=== PATIENT | male | born 1960 | race Caucasian/White ===

== ENCOUNTER → 2021-02-19 13:25 | Outpatient (BNVA) | payer BC, MEDICAID, SELFPAY | PROVIDERS: PCP Physician Assistant; Visit Provider Internal Medicine Gastroenterology ==

== ENCOUNTER 2022-01-10 08:32 | Outpatient (REF) | payer BC, MEDICAID, SELFPAY ==
[2022-01-10 15:12] LABS: CDiff Gene PCR NEGATIVE (Negative)
[2022-01-14 20:52] LABS: Fecal Fat Qualitative Abnormal (Normal)
[2022-01-15 22:46] LABS: Lactoferrin, Fecal, Quant. <30.0 mcg/mL
[2022-01-16 22:27] LABS: Pancreatic Elastase-1 80 mcg/g
== END 2022-01-10 08:33 | disposition home or self-care (01) ==
LOC: CF 08:32
PROVIDERS: PCP Physician Assistant; Visit Provider Internal Medicine Gastroenterology
DX: R19.7 Diarrhea, unspecified (principal)
CPT/HCPCS: 36415; 82656; 82705; 83631; 87329; 87493

== ENCOUNTER → 2022-02-07 08:57 | Outpatient (BNVA) | payer BC, MEDICAID, SELFPAY | PROVIDERS: PCP Physician Assistant; Referring Provider Physician Assistant; Visit Provider Internal Medicine Gastroenterology | DX: K22.70 Barrett's esophagus without dysplasia (principal); R19.7 Diarrhea, unspecified; K86.89 Other specified diseases of pancreas | CPT/HCPCS: 99212 ==

== ENCOUNTER 2022-02-15 10:23 | Outpatient (REF) | payer BC, MEDICAID, SELFPAY ==
[2022-02-15 12:05] LABS: Anion Gap 11 (12-20); Blood Urea Nitrogen 16 mg/dL (9-16); Calcium 9.4 mg/dL (8.4-10.2); Carbon Dioxide 31 mmol/L (22-29); Chloride 102 mmol/L (96-108); Estimated Glomerular Filt Rate > 60; Glucose Random 177 mg/dL (60-115); Potassium 4.4 mmol/L (3.3-5.1); Sodium 140 mmol/L (135-145)
== END 2022-02-15 10:24 | disposition home or self-care (01) ==
LOC: HO.LAB 10:23
PROVIDERS: PCP Physician Assistant; Visit Provider Internal Medicine Gastroenterology
DX: N18.30 Chronic kidney disease, stage 3 unspecified (principal)
CPT/HCPCS: 36415; 80048

== ENCOUNTER 2022-02-21 16:14 | Outpatient (REF) | payer BC, MEDICAID, SELFPAY ==
--- NOTE | ~2022-02-21 | MR_ITS ---
EXAMINATION: MR ABDOMEN WITHOUT AND WITH CONTRAST CLINICAL INFORMATION: Diarrhea COMPARISON: Abdominal ultrasound 08/21/2020 . TECHNIQUE: MR abdomen was performed without and with use of 8 mL intravenous Gadavist gadolinium contrast. Postcontrast images are performed in multiphase dynamic sequences. Imaging was performed in 3 planes. FINDINGS: LUNG BASES: The visualized lung bases are unremarkable. LIVER, GALLBLADDER, AND BILIARY TREE: The liver is normal in size, smooth in contour, and normal in signal. No focal hepatic lesion or biliary ductal dilatation is present. The gallbladder is unremarkable with no evidence of gallbladder wall thickening, or obvious pericholecystic inflammatory changes. PANCREAS: The pancreatic parenchyma is homogenous. No ductal dilatation. No focal pancreatic lesion. SPLEEN: Normal. ADRENAL GLANDS: Normal. KIDNEYS AND URETERS: The kidneys are normal in size, shape, and enhance symmetrically. No hydronephrosis. No perinephric stranding. GASTROINTESTINAL TRACT: No bowel obstruction. No ascites or fluid collection. ABDOMINAL WALL: No significant hernia is appreciated. LYMPH NODES: No lymphadenopathy. VASCULAR: Unremarkable. OSSEOUS STRUCTURES: Marrow signal normal. MR/MR abdomen wo/w con IMPRESSION: No suspicious findings in the abdomen. Normal appearance of the pancreas. No lymphadenopathy. The visualized bowel shows no suspicious finding.
== END 2022-02-21 16:15 | disposition home or self-care (01) ==
LOC: HO.MRI 16:14
PROVIDERS: Visit Provider Internal Medicine Gastroenterology
DX: R19.7 Diarrhea, unspecified (principal); K86.89 Other specified diseases of pancreas
CPT/HCPCS: 74183; A9585

== ENCOUNTER 2022-04-15 07:13 | Outpatient (REF) | payer BC, MEDICAID, SELFPAY ==
[2022-04-15 07:26] LABS: MANUAL DIFF FLAG NO
[2022-04-15 08:03] LABS: Basophils Percent Auto 0.3 % (0-2); Eosinophils Percent Auto 0.5 % (0-4); Hematocrit 45.3 % (42.0-52.0); Hemoglobin 14.6 g/dl (14.0-18.0); Imm Gran Abs Auto 0.04 X10*3/uL (0.00-0.03); Imm Gran Pct Auto 0.5 % (0.0-0.4); Lymphocytes Absolute Auto 2.1 X10*3/uL (1.2-4.9); Lymphocytes Percent Auto 26.8 % (20-40); Mean Corpuscular HGB Conc 32.2 g/dl (31.0-36.0); Mean Corpuscular Hemoglobin 29.5 pg (27.0-33.0); Mean Corpuscular Volume 91.5 fL (80.0-98.0); Mean Platelet Volume 10.5 fL (9.4-12.4); Monocytes Absolute Auto 1.1 X10*3/uL (0.1-1.2); Monocytes Percent Auto 13.6 % (2-11); Neutrophils Absolute Auto 4.5 x10*3/uL (2.0-8.3); Neutrophils Percent Auto 58.3 % (45-73); Platelet Count 194 X10*3/uL (160-400); Red Blood Count 4.95 X10*6/uL (4.60-5.80); Red Cell Distribution Width 12.3 % (11.0-16.0); White Blood Count 7.8 X10*3/uL (4.8-10.8)
[2022-04-15 08:25] LABS: Alanine Aminotransferase 21 U/L (0-40); Albumin Level 3.8 g/dL (3.5-5.0); Alkaline Phosphatase 69 U/L (39-117); Anion Gap 12 (12-20); Aspartate Amino Transferase 42 U/L (5-37); Bilirubin Total 0.7 mg/dL (0.0-1.0); Blood Urea Nitrogen 14 mg/dL (9-16); C Reactive Protein 0.34 mg/dL (< or = 0.50); Calcium 9.2 mg/dL (8.4-10.2); Carbon Dioxide 29 mmol/L (22-29); Chloride 99 mmol/L (96-108); Estimated Glomerular Filt Rate > 60; Glucose Random 179 mg/dL (60-115); Potassium 4.2 mmol/L (3.3-5.1); Sodium 136 mmol/L (135-145); Total Protein 6.9 g/dL (6.5-8.0)
== END 2022-04-15 07:14 | disposition home or self-care (01) ==
LOC: HO.LAB 07:13
PROVIDERS: PCP Physician Assistant; Visit Provider Physician Assistant
DX: R19.5 Other fecal abnormalities (principal)
CPT/HCPCS: 36415; 80053; 85025; 86140

== ENCOUNTER → 2022-04-25 08:13 | Outpatient (BNVA) | payer BC, MEDICAID, SELFPAY | PROVIDERS: PCP Physician Assistant; Visit Provider Internal Medicine Gastroenterology | DX: Z13.89 Encounter for screening for other disorder (principal) ==

== ENCOUNTER 2022-07-23 06:40 | Day surgery (SDC) | payer BC, MEDICAID, SELFPAY ==
[2022-07-17 15:14] VITALS: BMI 25.9
--- NOTE | 2022-07-22 11:48 | HO.ANESPROP2 ---
Documented by User: Edilma Boo NP 07/22/22 11:50 HPI - Anesthesia Eval Consult details Narrative: 62yo M for Upper Endoscopy *Multiple Med Allergies* PMFSH Active Problems Active Problems: All Active Problems (Updated 07/17/22 @ 15:11 by Sushma Morgan, RN) Diarrhea (Acute) Pancreatic insufficiency (Acute) Past Medical History Medical History (Updated 07/17/22 @ 15:11 by Sushma Morgan RN) Arthritis Barretts esophagus COVID-19 vaccine administered Depression Diabetes GERD (gastroesophageal reflux disease) History of COVID-19 Peptic ulcer Peripheral neuropathy Surgical History Surgical History (Updated 07/17/22 @ 14:54 by Sushma Morgan RN) H/O colonoscopy History of esophagogastroduodenoscopy (EGD) Hx of cardiac catheterization Hx of hernia repair Social History Social History Household Members: None Are you a primary childcare worker to a significant other at home: No Do you presently have visiting nurse or other home services: No Alcohol intake: never Patient Tobacco Use Status: Never used Tobacco Use of substances other than those prescribed or required for medical reasons: No Have you been hit, kicked, punched, or otherwise hurt by someone within the past year? If so, by whom?: No Are you DNR?: Yes Advance Directives: No (states has HCP & DNR forms) Advance Directives Information Provided: Yes (advised to bring copies DOS) Advance Directives on File: No Recently lost weight without trying: No Eating poorly because of decreased appetite: No Nutrition Risks: No Nutritional Risk Meds Allergies Allergy/AdvReac Type Severity Reaction Status Date / Time hydrocodone [From VICODIN] Allergy Intermediate HALLUCINATE Verified 07/17/22 15:08 S naproxen [NAPROXEN] Allergy Intermediate HALLUCINATE Verified 07/17/22 15:08 S oxycodone [From PERCOCET] Allergy Intermediate HALLUCINATE Verified 07/17/22 15:08 S alprazolam [ALPRAZOLAM] Allergy Unknown PER H&P Verified 04/25/22 08:17 clonazepam [CLONAZEPAM] Allergy Unknown PER H&P Verified 04/25/22 08:17 metformin [METFORMIN] Allergy Unknown PER H&P Verified 04/25/22 08:17 metoprolol [METOPROLOL] Allergy Unknown PER H&P Verified 04/25/22 08:17 omeprazole Allergy Unknown unknown Verified 04/25/22 08:17 sertraline [SERTRALINE] Allergy Unknown PER H&P Verified 04/25/22 08:17 trazodone [TRAZODONE] Allergy Unknown PER H&P Verified 04/25/22 08:17 zolpidem [From AMBIEN] Allergy Unknown PER H&P Verified 04/25/22 08:17 Vicodin Allergy Unknown unknown Uncoded 04/25/22 08:17 Home Medications Medication Instructions Recorded Confirmed Last Taken Type blood-glucose meter #1 ea 02/19/21 Unknown History diazepam 5 mg tablet 5 mg PO BEDTIME 02/19/21 07/17/22 Unknown History insulin lispro 100 unit/mL 5 unit subcut TIDAC 02/19/21 07/17/22 Unknown History subcutaneous pen insulin syr/ndl U100 half louis 0.3 #10 ea 02/19/21 Unknown History mL 31 gauge x 5/16 lancets 28 gauge #100 ea 02/19/21 Unknown History blood sugar diagnostic (Accu-Chek #10 ea 04/25/22 Unknown History Guide test strips) insulin glargine 100 unit/mL 18 unit subcut BEDTIME 04/25/22 07/17/22 Unknown History subcutaneous solution (Lantus U-100 Insulin) insulin syringe-needle U-100 0.3 #10 ea 04/25/22 Unknown History mL 31 gauge x 15/64 (BD Veo Insulin Syringe Ultra-Fine) sildenafil 100 mg tablet 100 mg PO DAILY PRN Erectile 04/25/22 07/17/22 Unknown History Dysfunction acetaminophen 500 mg tablet 1,000 mg PO TID 07/17/22 07/17/22 Unknown History Exam Exam Date and Time: July 22, 2022 1148 Height,Weight and Vital Signs: Height 5 ft 9 in Weight 79.832 kg Pertinent Lab Results Pertinent Lab Results: Laboratory Tests 04/15/22 04/15/22 07:24 07:24 WBC 7.8 Hgb 14.6 Hct 45.3 Plt Count 194 Sodium 136 Potassium 4.2 Chloride 99 Carbon Dioxide 29 BUN 14 Creatinine 0.88 Assessment and Plan Assessment Anesthesia Assessment: Chart Reviewed Documented by User: Mindy Garcia MD 07/23/22 08:25 PMFSH Past Medical History Medical History (Updated 07/17/22 @ 15:11 by Sushma Morgan, RN) Arthritis Barretts esophagus COVID-19 vaccine administered Depression Diabetes GERD (gastroesophageal reflux disease) History of COVID-19 Peptic ulcer Peripheral neuropathy Family History Family history of problems with anesthesia: No Surgical History Surgical History (Updated 07/17/22 @ 14:54 by Sushma Morgan, OBEY) H/O colonoscopy History of esophagogastroduodenoscopy (EGD) Hx of cardiac catheterization Hx of hernia repair History of Problems with Anesthesia: No Social History Social History Household Members: None Are you a primary childcare worker to a significant other at home: No Do you presently have visiting nurse or other home services: No Alcohol intake: never Patient Tobacco Use Status: Never used Tobacco Use of substances other than those prescribed or required for medical reasons: No Have you been hit, kicked, punched, or otherwise hurt by someone within the past year? If so, by whom?: No Are you DNR?: Yes Advance Directives: No (states has HCP & DNR forms) Advance Directives Information Provided: Yes (advised to bring copies DOS) Advance Directives on File: No Recently lost weight without trying: No Eating poorly because of decreased appetite: No Nutrition Risks: No Nutritional Risk Meds Allergies Allergy/AdvReac Type Severity Reaction Status Date / Time hydrocodone [From VICODIN] Allergy Intermediate HALLUCINATE Verified 07/17/22 15:08 S naproxen [NAPROXEN] Allergy Intermediate HALLUCINATE Verified 07/17/22 15:08 S oxycodone [From PERCOCET] Allergy Intermediate HALLUCINATE Verified 07/17/22 15:08 S alprazolam [ALPRAZOLAM] Allergy Unknown PER H&P Verified 04/25/22 08:17 clonazepam [CLONAZEPAM] Allergy Unknown PER H&P Verified 04/25/22 08:17 metformin [METFORMIN] Allergy Unknown PER H&P Verified 04/25/22 08:17 metoprolol [METOPROLOL] Allergy Unknown PER H&P Verified 04/25/22 08:17 omeprazole Allergy Unknown unknown Verified 04/25/22 08:17 sertraline [SERTRALINE] Allergy Unknown PER H&P Verified 04/25/22 08:17 trazodone [TRAZODONE] Allergy Unknown PER H&P Verified 04/25/22 08:17 zolpidem [From AMBIEN] Allergy Unknown PER H&P Verified 04/25/22 08:17 Vicodin Allergy Unknown unknown Uncoded 04/25/22 08:17 Home Medications Medication Instructions Recorded Confirmed Last Taken Type blood-glucose meter #1 ea 02/19/21 Unknown History diazepam 5 mg tablet 5 mg PO BEDTIME 02/19/21 07/17/22 Unknown History insulin lispro 100 unit/mL 5 unit subcut TIDAC 02/19/21 07/17/22 Unknown History subcutaneous pen insulin syr/ndl U100 half louis 0.3 #10 ea 02/19/21 Unknown History mL 31 gauge x 5/16 lancets 28 gauge #100 ea 02/19/21 Unknown History blood sugar diagnostic (Accu-Chek #10 ea 04/25/22 Unknown History Guide test strips) insulin glargine 100 unit/mL 18 unit subcut BEDTIME 04/25/22 07/17/22 Unknown History subcutaneous solution (Lantus U-100 Insulin) insulin syringe-needle U-100 0.3 #10 ea 04/25/22 Unknown History mL 31 gauge x 15/64 (BD Veo Insulin Syringe Ultra-Fine) sildenafil 100 mg tablet 100 mg PO DAILY PRN Erectile 04/25/22 07/17/22 Unknown History Dysfunction acetaminophen 500 mg tablet 1,000 mg PO TID 07/17/22 07/17/22 Unknown History Exam Airway Mallampati Class: II (Multiple caps) TM Dist: >3cm Neck ROM: Full Heart: rrr Lungs: cta Assessment and Plan Assessment Anesthesia Assessment: Anesthesia Plan Discussed and Chart Reviewed Final Anesthetic Review Family History of Problems with Anesthesia: No History of Problems with Anesthesia: No NPO: Yes ASA Class: III Final Preanesthetic Review: No Changes in Pt Med Stat, Meds/Allgs Chart Reviewed and Consent Obtained/Reviewed Patient Risk: Intermediate Procedure Risk: Intermediate Anesthetic Plan Anesthetic Plan: MAC: Disposition: Standard PACU
[2022-07-23 08:08] VITALS: BP 137/73; PULSE 64; RESP 18; TEMP 36.6; O2SAT 98; BMI 25.9
--- NOTE | 2022-07-23 08:08 | MHC.SHP ---
Pre-Procedural Eval Section A Date of Service: 07/23/22 The patient is an INPATIENT: No Section B Chief Complaint: Pyrosis, diarrhea Details of Present Illness: 62 y.o M presenting for EGD for small biopsy. Mainly c/o reflux despite PPI and sucralfate. Also reports diarrhea that he attributes to omeprazole. 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 Last EGD 2019 (Dr Devine) Relevant Social History: None Present Medications: see Short Stay Collaborative assessment Medical History: Significant History (Arthritis Barretts esophagus COVID-19 vaccine administered Depression Diabetes GERD (gastroesophageal reflux disease) History of COVID-19 Peptic ulcer Peripheral neuropathy ) History of Previous Operations: Relevant previous surgery/procedure and date(s) (H/O colonoscopy History of esophagogastroduodenoscopy (EGD) Hx of cardiac catheterization Hx of hernia repair) Allergies: Allergies Allergy/AdvReac Type Severity Reaction Status Date / Time hydrocodone [From VICODIN] Allergy Intermediate HALLUCINATE Verified 07/17/22 15:08 S naproxen [NAPROXEN] Allergy Intermediate HALLUCINATE Verified 07/17/22 15:08 S oxycodone [From PERCOCET] Allergy Intermediate HALLUCINATE Verified 07/17/22 15:08 S alprazolam [ALPRAZOLAM] Allergy Unknown PER H&P Verified 04/25/22 08:17 clonazepam [CLONAZEPAM] Allergy Unknown PER H&P Verified 04/25/22 08:17 metformin [METFORMIN] Allergy Unknown PER H&P Verified 04/25/22 08:17 metoprolol [METOPROLOL] Allergy Unknown PER H&P Verified 04/25/22 08:17 omeprazole Allergy Unknown unknown Verified 04/25/22 08:17 sertraline [SERTRALINE] Allergy Unknown PER H&P Verified 04/25/22 08:17 trazodone [TRAZODONE] Allergy Unknown PER H&P Verified 04/25/22 08:17 zolpidem [From AMBIEN] Allergy Unknown PER H&P Verified 04/25/22 08:17 Vicodin Allergy Unknown unknown Uncoded 04/25/22 08:17 Review of Systems Review of Systems Comment: 10 point ROS reviewed and negative except as noted above Exam Exam Comment: Gen appear: No acute distress, well nourished HEENT: no icterus, Chest: No overt resp distress Abd: soft, nontender, nondistended Psych: Stable affect, answering questions appropriately Neuro: A/Ox3 noted to move all extremities spontaneously Ext: no peripheral edema Plan Diagnosis/Plan: Unchanged I have reviewed the history and physical and performed a pertinent physical examination on my patient. No changes have occurred unless specified.
--- NOTE | 2022-07-23 08:15 | P.OP_ITS ---
Operative Note Operative Note Date of Service: 07/23/22 Narrative: Procedure Date: 07/23/22 Procedure: Esophagogastroduodenoscopy Endoscopist: Lolis Gutierrez MD Indication: PPI refractory reflux, hx of SGBE, chronic diarrhea Anesthesia Provider: Dr Mindy Up Anesthesia Type: MAC ?? EGD Procedure:?? The procedure, indications, preparation and potential complications were reviewed with the patient, who indicated understanding and gave written informed consent to proceed. A physical exam was performed. The standard gastroscope was introduced through the mouth, and advanced to the second part of duodenum. The mucosa was carefully examined on slow withdrawal of the endoscope. The patient tolerated the procedure well. There were no immediate complications.? ? EGD Findings:?Esophagus:? [place]-colored mucosa extending into the esophagus proximal to the GE junction was noted. GEJ at 39 cm. The Z line was at 38 cm. The upper most extent of the tongue was at 36 cm. (C1 M3) No nodularity was noted under white light or NBI. Cold forceps biopsies were obtained. ?Stomach:? Few sessile polyps were noted in the fundus with appearance consistent with fundic gland polyps. Largest polyp (which was still subcentimeter) was biopsied with cold forceps. ?Duodenum:?Prominent villi with whitish tips was noted. Biopsies were taken to rule out duodenal lymphangiectasia. ? 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 Recommendations:?Follow biopsy results. Our office will call or send a letter with results within 7-10 days. ?Continue PPI therapy. ?Avoid NSAIDs. ? Follow up in office as scheduled. ?Above has been reviewed with the patient. Educational hand outs were provided at discharge.
[2022-07-23 08:22] LABS: Glucose, Whole Blood 114 mg/dL (60-115)
[2022-07-23 09:09] VITALS: BP 117/64; PULSE 71; RESP 16; TEMP 36.7; O2SAT 95
[2022-07-23 09:24] VITALS: BP 124/71; PULSE 68; RESP 16; O2SAT 96
== END 2022-07-23 09:46 | disposition home or self-care (01) ==
PROVIDERS: PCP Physician Assistant; Visit Provider Internal Medicine
PROC: 0DJ08ZZ Inspection of Upper Intestinal Tract, Via Natural or Artificial Opening Endoscopic (ICD-10-PCS; CPT 43235; principal; 2022-07-23 08:30)
DX: K21.9 Gastro-esophageal reflux disease without esophagitis (principal); K22.70 Barrett's esophagus without dysplasia; R19.7 Diarrhea, unspecified; K31.7 Polyp of stomach and duodenum; E11.9 Type 2 diabetes mellitus without complications; G62.9 Polyneuropathy, unspecified; M19.90 Unspecified osteoarthritis, unspecified site; F32.9 Major depressive disorder, single episode, unspecified; Z79.4 Long term (current) use of insulin; Z79.899 Other long term (current) drug therapy; Z86.16 Personal history of COVID-19; Z88.8 Allergy status to other drugs, medicaments and biological substances
CPT/HCPCS: 43239; 82947; 88305; 88342

== ENCOUNTER → 2023-03-16 13:44 | Outpatient (BNVA) | payer BC, MEDICAID, SELFPAY | PROVIDERS: PCP Family Medicine; Visit Provider Internal Medicine Gastroenterology | DX: Z13.89 Encounter for screening for other disorder (principal) ==

== ENCOUNTER 2023-09-07 13:31 | Outpatient (AMB) | payer BC, MEDICAID, SELFPAY ==
--- NOTE | 2023-09-07 13:38 | A.OFFVIS_ITS ---
Intake Vital Signs 09/07/23 13:40 Height 5 ft 9 in Weight 187 lb 6.287 oz BMI 27.7 BP 136/84 Blood Pressure Location Lt brachial Position Sitting Pulse 81 Intake Visit Reasons: 6 mnth follow up Intake Note: Jamarcus presents in the office as a 6 month follow up. CC: He states that he is not having any concerns today! 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 Allergies alprazolam [ALPRAZOLAM] Allergy (Unknown, Verified 09/07/23 13:41) PER H&P clonazepam [CLONAZEPAM] Allergy (Unknown, Verified 09/07/23 13:41) PER H&P metformin [METFORMIN] Allergy (Unknown, Verified 09/07/23 13:41) PER H&P metoprolol [METOPROLOL] Allergy (Unknown, Verified 09/07/23 13:41) PER H&P omeprazole Allergy (Unknown, Verified 09/07/23 13:41) unknown sertraline [SERTRALINE] Allergy (Unknown, Verified 09/07/23 13:41) PER H&P trazodone [TRAZODONE] Allergy (Unknown, Verified 09/07/23 13:41) PER H&P zolpidem [From AMBIEN] Allergy (Unknown, Verified 09/07/23 13:41) PER H&P narcotics Allergy (Mild, Uncoded 09/07/23 13:41) Hallucinations HPI 6 mnth follow up HPI Details 63 yr old m here for f/u RECAP: ? Had originally seen Jamia Villaseñor ? main issues were barretts and diarrhea ? he was commenced on PPI, dexilant ? diarrhea with probiotic ? He was c/o upset stomach after eating, has postprandial stooling, watery d/c ? he has lots of gas ? he takes cheese with turkey, he doesn;t drink milk, takes diet coke 3 big cups daily ? he is already taking prilosec OTC 20 mg ? advised on diet, try to stop diet coke, pudding and avoid cheese, gradually reintroduce and assess response ? TESTS: u/s abdo--12/2018--normal ? GES- 02/2019-normal ? eGD/colonsocopy 08/2019--macias,s chronic esophagitis, tubular adenoma removed, random bx neg, melanosis coli ? rept egd 06/2020-- barretts, no dysplasia MRI: 02/2022- pancreas was normal EGD: 07/14-- barretts, with some inflammation--C1 M3, fundic gland polyp TRIALS: ? he was given trial of rifaximin, unable to tolerate ? align was working well for him ? ppI INCREASED TO BID, changed to pantoprazole then dexilant due to diarrheal symptoms with PPI ? INTERIM: he has gained a little more weight still drinking soda, eats like a hawk he didn't think dexilant was any good he is taking omeprazole 20 mg daily which works well no nausea or vomiting appetite is good no dysphagia ? ? EXAM: GENERAL: The patient is well developed and nontoxic. VITAL SIGNS:see workflow HEENT: Nonicteric sclerae, PERRLA, EOMI. Oropharynx clear. Moist mucous membranes. Conjunctivae appear well perfused. No thyroid mass. CHEST: Chest wall is nontender. HEART: Regular rate and rhythm without murmurs. LUNGS: Clear to auscultation bilaterally. ABDOMEN: Soft, positive bowel sounds, nontender, no organomegaly.no flank tenderness SKIN: No rash, no excessive bruising, petechiae, or purpura. NEUROLOGIC: Cranial nerves II-XII intact without motor/sensory deficit. ?psych--nml affect Assessments ? ? 1/ GERD, controlled clinically 2/ Diarrhea, prob due to soft drinks, po ssibly due to PPI 3/ Barretts esophagus, no dysplasia PLAN: 1/ cont with omeprazole daily 2/ repeat EGD in 2-3 yrs 3/ periodic b12, iron studies, Mag, vit D levels 4/ colonoscopy next year due to hx of po lyps, sent suprep f/u 6 months ? PFSH Medical History Peripheral neuropathy COVID-19 vaccine administered History of COVID-19 Diabetes Depression Arthritis Barretts esophagus Peptic ulcer GERD (gastroesophageal reflux disease) Surgical History Hx of hernia repair Hx of cardiac catheterization History of esophagogastroduodenoscopy (EGD) H/O colonoscopy Social History Household Members: None Are you a primary child care centre director to a significant other at home: No Do you presently have visiting nurse or other home services: No Alcohol intake: never Patient Tobacco Use Status: Never used Tobacco Physical Exam Vital Signs: BMI result Body Mass Index 27.7 Assessment & Plan Assessment & Plan Medications: New sodium,potassium,mag sulfates 17.5-3.13-1.6 gram (Suprep Bowel Prep Kit) DILUTE; drink 1/2 at 6-8 pm and half at 11 PM- 1AM 354 mL 0RF Coding Level of Care Code Est Pt Level 3 (79101)
[2023-09-07 13:40] VITALS: BP 136/84; PULSE 81; BMI 27.7
== END 2023-09-07 14:07 | disposition home or self-care (01) ==
PROVIDERS: PCP Family Medicine; Visit Provider Internal Medicine Gastroenterology
DX: K22.70 Barrett's esophagus without dysplasia (principal); K52.9 Noninfective gastroenteritis and colitis, unspecified
CPT/HCPCS: 99213

== ENCOUNTER → 2023-09-07 13:31 | Outpatient (BNVA) | payer BC, MEDICAID, SELFPAY | PROVIDERS: PCP Family Medicine; Visit Provider Internal Medicine Gastroenterology ==

== ENCOUNTER 2023-11-25 07:07 | Day surgery (SDC) | payer BC, MEDICAID, SELFPAY ==
[2023-11-20 14:16] VITALS: BMI 27.6
--- NOTE | 2023-11-24 12:23 | P.CONAN_ITS ---
Documented by User: Edilma Boo NP 11/24/23 12:24 HPI - Anesthesia Eval Consult details Narrative: 63yo M for Colonoscopy *Multiple Med Allergies* PMFSH Active Problems Active Problems: All Active Problems (Updated 07/17/22 @ 15:11 by Sushma Morgan RN) Pancreatic insufficiency (Acute) Diarrhea (Acute) Past Medical History Medical History Peripheral neuropathy COVID-19 vaccine administered History of COVID-19 Diabetes Depression Arthritis Barretts esophagus Peptic ulcer GERD (gastroesophageal reflux disease) Family History Family history of problems with anesthesia: No Surgical History Surgical History (Updated 11/20/23 @ 14:13 by Sushma Morgan RN) Hx of hernia repair Hx of cardiac catheterization History of esophagogastroduodenoscopy (EGD) H/O colonoscopy History of Problems with Anesthesia: No Social History Social History Household Members: None Are you a primary professional healthcare representative to a significant other at home: No Do you presently have visiting nurse or other home services: No Alcohol intake: never Patient Tobacco Use Status: Never used Tobacco Are you DNR?: No Advance Directives: No Advance Directives Information Provided: Yes Nutrition Risks: No Nutritional Risk Meds Allergies Allergy/AdvReac Type Severity Reaction Status Date / Time alprazolam [ALPRAZOLAM] Allergy Unknown PER H&P Verified 09/07/23 13:41 clonazepam [CLONAZEPAM] Allergy Unknown PER H&P Verified 09/07/23 13:41 metformin [METFORMIN] Allergy Unknown PER H&P Verified 09/07/23 13:41 metoprolol [METOPROLOL] Allergy Unknown PER H&P Verified 09/07/23 13:41 omeprazole Allergy Unknown unknown Verified 09/07/23 13:41 sertraline [SERTRALINE] Allergy Unknown PER H&P Verified 09/07/23 13:41 trazodone [TRAZODONE] Allergy Unknown PER H&P Verified 09/07/23 13:41 zolpidem [From AMBIEN] Allergy Unknown PER H&P Verified 09/07/23 13:41 narcotics Allergy Mild Hallucinati Uncoded 09/07/23 13:41 ons Home Medications Medication Instructions Recorded Confirmed Last Taken Type blood-glucose meter #1 ea 02/19/21 Unknown History diazepam 5 mg tablet 5 mg PO BEDTIME 02/19/21 11/20/23 Unknown History insulin lispro 100 unit/mL 5 unit subcut TIDAC 02/19/21 11/20/23 Unknown History subcutaneous pen insulin syr/ndl U100 half louis 0.3 #10 ea 02/19/21 Unknown History mL 31 gauge x 5/16 lancets 28 gauge #100 ea 02/19/21 Unknown History blood sugar diagnostic (Accu-Chek #10 ea 04/25/22 Unknown History Guide test strips) insulin glargine 100 unit/mL 18 unit subcut BEDTIME 04/25/22 11/20/23 Unknown History subcutaneous solution (Lantus U-100 Insulin) insulin syringe-needle U-100 0.3 #10 ea 04/25/22 Unknown History mL 31 gauge x 15/64 (BD Veo Insulin Syringe Ultra-Fine) sildenafil 100 mg tablet 100 mg PO DAILY PRN Erectile 04/25/22 11/20/23 Unknown History Dysfunction acetaminophen 500 mg tablet 1,000 mg PO TID 07/17/22 07/17/22 Unknown History omeprazole 20 mg capsule,delayed 20 mg PO DAILY 09/07/23 11/20/23 Unknown History release Exam Height,Weight and Vital Signs: Height 5 ft 9 in Weight 84.822 kg Assessment and Plan Assessment Anesthesia Assessment: Chart Reviewed Final Anesthetic Review Family History of Problems with Anesthesia: No History of Problems with Anesthesia: No Documented by User: Mindy Garcia MD 11/25/23 09:04 [facility] Past Medical History Medical History Peripheral neuropathy COVID-19 vaccine administered History of COVID-19 Diabetes Depression Arthritis Barretts esophagus Peptic ulcer GERD (gastroesophageal reflux disease) Surgical History Surgical History (Updated 11/20/23 @ 14:13 by Sushma Morgan RN) Hx of hernia repair Hx of cardiac catheterization History of esophagogastroduodenoscopy (EGD) H/O colonoscopy Social History Social History Household Members: None Are you a primary professional healthcare representative to a significant other at home: No Do you presently have visiting nurse or other home services: No Alcohol intake: never Patient Tobacco Use Status: Never used Tobacco Are you DNR?: No Advance Directives: No Advance Directives Information Provided: Yes Nutrition Risks: No Nutritional Risk Meds Allergies Allergy/AdvReac Type Severity Reaction Status Date / Time alprazolam [ALPRAZOLAM] Allergy Unknown PER H&P Verified 09/07/23 13:41 clonazepam [CLONAZEPAM] Allergy Unknown PER H&P Verified 09/07/23 13:41 metformin [METFORMIN] Allergy Unknown PER H&P Verified 09/07/23 13:41 metoprolol [METOPROLOL] Allergy Unknown PER H&P Verified 09/07/23 13:41 omeprazole Allergy Unknown unknown Verified 09/07/23 13:41 sertraline [SERTRALINE] Allergy Unknown PER H&P Verified 09/07/23 13:41 trazodone [TRAZODONE] Allergy Unknown PER H&P Verified 09/07/23 13:41 zolpidem [From AMBIEN] Allergy Unknown PER H&P Verified 09/07/23 13:41 narcotics Allergy Mild Hallucinati Uncoded 09/07/23 13:41 ons Home Medications Medication Instructions Recorded Confirmed Last Taken Type blood-glucose meter #1 ea 02/19/21 Unknown History diazepam 5 mg tablet 5 mg PO BEDTIME 02/19/21 11/20/23 Unknown History insulin lispro 100 unit/mL 5 unit subcut TIDAC 02/19/21 11/20/23 Unknown History subcutaneous pen insulin syr/ndl U100 half louis 0.3 #10 ea 02/19/21 Unknown History mL 31 gauge x 5/16 lancets 28 gauge #100 ea 02/19/21 Unknown History blood sugar diagnostic (Accu-Chek #10 ea 04/25/22 Unknown History Guide test strips) insulin glargine 100 unit/mL 18 unit subcut BEDTIME 04/25/22 11/20/23 Unknown History subcutaneous solution (Lantus U-100 Insulin) insulin syringe-needle U-100 0.3 #10 ea 04/25/22 Unknown History mL 31 gauge x 15/64 (BD Veo Insulin Syringe Ultra-Fine) sildenafil 100 mg tablet 100 mg PO DAILY PRN Erectile 04/25/22 11/20/23 Unknown History Dysfunction acetaminophen 500 mg tablet 1,000 mg PO TID 07/17/22 07/17/22 Unknown History omeprazole 20 mg capsule,delayed 20 mg PO DAILY 09/07/23 11/20/23 Unknown History release Exam Airway Mallampati Class: II (multiple caps) TM Dist: >3cm Neck ROM: Full Heart: rrr Lungs: cta Assessment and Plan Assessment Anesthesia Assessment: Anesthesia Plan Discussed Final Anesthetic Review NPO: Yes ASA Class: III Final Preanesthetic Review: No Changes in Pt Med Stat, Meds/Allgs Chart Reviewed and Consent Obtained/Reviewed Patient Risk: Intermediate Procedure Risk: Intermediate Anesthetic Plan Anesthetic Plan: MAC: Disposition: Standard PACU
[2023-11-25 08:13] VITALS: BMI 27.3
[2023-11-25 08:24] VITALS: BP 133/82; PULSE 75; RESP 20; TEMP 36.1; O2SAT 98
[2023-11-25 08:25] LABS: Glucose, Whole Blood 120 mg/dL (60-115)
[2023-11-25] MEDS: Lactated Ringers 1,000 ML 100 ML IVCONT (08:46)
--- NOTE | 2023-11-25 09:39 | MHC.SHP ---
Pre-Procedural Eval Section A Date of Service: 11/25/23 Section B Chief Complaint: Encounter for screening for malignant neoplasm of Relevant Family History (Specify if Yes): No Relevant Social History: None Present Medications: see Short Stay Collaborative assessment Medical History: Significant History (Peripheral neuropathy COVID-19 vaccine administered History of COVID-19 Diabetes Depression Arthritis Barretts esophagus Peptic ulcer GERD (gastroesophageal reflux disease)) History of Previous Operations: Relevant previous surgery/procedure and date(s) (Hx of hernia repair Hx of cardiac catheterization History of esophagogastroduodenoscopy (EGD) H/O colonoscopy) Allergies: Allergies Allergy/AdvReac Type Severity Reaction Status Date / Time alprazolam [ALPRAZOLAM] Allergy Unknown PER H&P Verified 09/07/23 13:41 clonazepam [CLONAZEPAM] Allergy Unknown PER H&P Verified 09/07/23 13:41 metformin [METFORMIN] Allergy Unknown PER H&P Verified 09/07/23 13:41 metoprolol [METOPROLOL] Allergy Unknown PER H&P Verified 09/07/23 13:41 omeprazole Allergy Unknown unknown Verified 09/07/23 13:41 sertraline [SERTRALINE] Allergy Unknown PER H&P Verified 09/07/23 13:41 trazodone [TRAZODONE] Allergy Unknown PER H&P Verified 09/07/23 13:41 zolpidem [From AMBIEN] Allergy Unknown PER H&P Verified 09/07/23 13:41 narcotics Allergy Mild Hallucinati Uncoded 09/07/23 13:41 ons Review of Systems Sugical H&P ROS: Negative: Constitution, Cardiovascular, Respiratory, Neurological, Psychiatric, Hem-Onc, Allergic/Immunologic, Gastrointestinal, Genitourinary, Musculoskeletal, Integumentary, Endocrine and Eyes/Ears/Nose/Throat Exam Surgical H&P Exam: Normal: HEENT, Normal: Heart, Normal: Lungs, Normal: Extremities, Normal: Abdomen, Normal: Skin and Normal: Neurological Plan Diagnosis/Plan: Unchanged I have reviewed the history and physical and performed a pertinent physical examination on my patient. No changes have occurred unless specified. Time Spent With Patient Time: Total time managing care of this patient today ____ minutes.
--- NOTE | 2023-11-25 09:40 | W.PM.OPN ---
Operative Note Operative Note Date of Service: 11/25/23 Narrative: Operative Information Procedure Description: Colonoscopy Indication: screening Anesthesia: MAC COLONOSCOPY Instrument: Olympus variable stiffness pediatric scope 190L Colonoscopy Monitoring: Vital signs and clinical assessment, continuous EKG monitoring, Pulse oximetry, Carbon Dioxide monitoring and blood pressure monitoring were done throughout the procedure. Colon withdrawal time was 8 minutes. Procedure: The patient was placed in the left lateral decubitis position and pre-procedure medications were administered. After a digital rectal examination of the ano-rectum, the video colonoscope was inserted into the rectum and advanced through the colon to the cecum/TI. The colonoscope was slowly withdrawn in a retrograde panoramic fashion and the colon mucosa was carefully examined including a retroflexed view of the rectum. Findings and interventions are described below. Procedure Difficulty: moderate due to poor prep Findings: Terminal Ileum-not intubated Cecum: 7-9 mm polyp removed with cold snare Ascending Colon: normal Transverse Colon -normal Descending Colon:normal Sigmoid Colon: moderate diverticulosis Rectum: Retroflexion with small internal hemorrhoids, grade I Anorectum - normal Colon preparation: [place] Bowel Preparation Scale Right colon; 0 Transverse colon: 1-2 Left colon; 1 (0 = Unprepared colon segment with mucosa not seen due to solid stool that cannot be cleared. 1 = Portion of mucosa of the colon segment seen, but other areas of the colon segment not well seen due to staining, residual stool and/or opaque liquid. 2 = Minor amount of residual staining, small fragments of stool and/or opaque liquid, but mucosa of colon segment seen well. 3 = Entire mucosa of colon segment seen well with no residual staining, small fragments of stool or opaque liquid) Impression and Post Procedure Diagnosis: polyp internal hemorrhoids diverticular disease Plan: High fiber diet leaflet Avoid straining at stool, epsom salts and sitz bath, anusol supps or cream Repeat Colonoscopy in 3-6 months or earlier if clinically indicated with prep compliance, maybe 2 d of clears Above findings were reviewed with the patient and relevant handouts were provided if indicated.
[2023-11-25 10:22] VITALS: BP 113/70; PULSE 64; RESP 16; TEMP 36.8; O2SAT 93
[2023-11-25 10:37] VITALS: BP 110/77; PULSE 61; RESP 18; TEMP 36.8; O2SAT 98
== END 2023-11-25 11:30 | disposition home or self-care (01) ==
PROVIDERS: PCP Family Medicine; Visit Provider Internal Medicine Gastroenterology
PROC: 0DJD8ZZ Inspection of Lower Intestinal Tract, Via Natural or Artificial Opening Endoscopic (ICD-10-PCS; CPT 45378; principal; 2023-11-25 10:10)
DX: Z12.11 Encounter for screening for malignant neoplasm of colon (principal); K63.5 Polyp of colon; K57.30 Diverticulosis of large intestine without perforation or abscess without bleeding; K64.0 First degree hemorrhoids; K21.9 Gastro-esophageal reflux disease without esophagitis; K22.70 Barrett's esophagus without dysplasia; K27.9 Peptic ulcer, site unspecified, unspecified as acute or chronic, without hemorrhage or perforation; G62.9 Polyneuropathy, unspecified; F32.A Depression, unspecified; E11.9 Type 2 diabetes mellitus without complications; Z79.4 Long term (current) use of insulin; Z79.899 Other long term (current) drug therapy; Z88.8 Allergy status to other drugs, medicaments and biological substances; Z86.16 Personal history of COVID-19; Z98.890 Other specified postprocedural states
CPT/HCPCS: 45385; 82947; 88305; J2704

== ENCOUNTER → 2023-11-25 07:07 | Outpatient (BNV) | payer BC, MEDICAID, SELFPAY | PROVIDERS: PCP Family Medicine; Visit Provider Internal Medicine Gastroenterology | DX: Z12.11 Encounter for screening for malignant neoplasm of colon (principal); K63.5 Polyp of colon; K57.30 Diverticulosis of large intestine without perforation or abscess without bleeding; K64.0 First degree hemorrhoids | CPT/HCPCS: 45385 ==

== ENCOUNTER 2024-02-05 08:48 | Outpatient (AMB) | payer BC, MEDICAID, SELFPAY ==
[2024-02-05 09:04] VITALS: BP 161/84; PULSE 89; BMI 27.7
--- NOTE | 2024-02-05 09:04 | MHC.OFFVIS ---
Intake Vital Signs 02/05/24 09:04 Height 5 ft 9 in Weight 187 lb 6.287 oz BMI 27.7 BP 161/84 H Blood Pressure Location Lt brachial Position Sitting Pulse 89 Intake Visit Reasons: follow up r/s from 12/14 Intake Note: Jamarcus presents in the office as a follow up. CC: he had a stomachache that lasted all day and he was going to the bathroom a lot but he was not sure if he had the stomach bug. 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: No Allergies alprazolam [ALPRAZOLAM] Allergy (Unknown, Verified 02/05/24 09:04) PER H&P clonazepam [CLONAZEPAM] Allergy (Unknown, Verified 02/05/24 09:04) PER H&P metformin [METFORMIN] Allergy (Unknown, Verified 02/05/24 09:04) PER H&P metoprolol [METOPROLOL] Allergy (Unknown, Verified 02/05/24 09:04) PER H&P omeprazole Allergy (Unknown, Verified 02/05/24 09:04) unknown sertraline [SERTRALINE] Allergy (Unknown, Verified 02/05/24 09:04) PER H&P trazodone [TRAZODONE] Allergy (Unknown, Verified 02/05/24 09:04) PER H&P zolpidem [From AMBIEN] Allergy (Unknown, Verified 02/05/24 09:04) PER H&P narcotics Allergy (Mild, Uncoded 02/05/24 09:04) Hallucinations HPI follow up r/s from 12/14 HPI Details 63 yr old m here for f/u RECAP: ? Had originally seen Jamia Villaseñor ? main issues were barretts and diarrhea ? he was commenced on PPI, dexilant ? diarrhea with probiotic ? He was c/o upset stomach after eating, has postprandial stooling, watery d/c ? he has lots of gas ? he takes cheese with turkey, he doesn;t drink milk, takes diet coke 3 big cups daily ? he is already taking prilosec OTC 20 mg ? advised on diet, try to stop diet coke, pudding and avoid cheese, gradually reintroduce and assess response ? TESTS: u/s abdo--12/2018--normal ? GES- 02/2019-normal ? eGD/colonsocopy 08/2019--macias,s chronic esophagitis, tubular adenoma removed, random bx neg, melanosis coli ? rept egd 06/2020-- barretts, no dysplasia MRI: 02/2022- pancreas was normal EGD: 07/14-- barretts, with some inflammation--C1 M3, fundic gland polyp Colon: 12/16- polyp removed, poor prep, path: no adenoma tissue seen TRIALS: ? he was given trial of rifaximin, unable to tolerate ? align was working well for him ? ppI INCREASED TO BID, changed to pantoprazole then dexilant due to diarrheal symptoms with PPI ? INTERIM: he has no major issues he is taking omeprazole 20 mg daily which works well no nausea or vomiting appetite is good no dysphagia ? EXAM: GENERAL: The patient is well developed and nontoxic. VITAL SIGNS:see workflow HEENT: Nonicteric sclerae, PERRLA, EOMI. Oropharynx clear. Moist mucous membranes. Conjunctivae appear well perfused. No thyroid mass. CHEST: Chest wall is nontender. HEART: Regular rate and rhythm without murmurs. LUNGS: Clear to auscultation bilaterally. ABDOMEN: Soft, positive bowel sounds, nontender, no organomegaly.no flank tenderness SKIN: No rash, no excessive bruising, petechiae, or purpura. NEUROLOGIC: Cranial nerves II-XII intact without motor/sensory deficit. ?psych--nml affect Assessments ? ? 1/ GERD, controlled clinically 2/ poor colon prep 3/ Barretts esophagus, no dysplasia PLAN: 1/ cont with omeprazole daily 2/ repeat EGD in 2-3 yrs 3/ periodic b12, iron studies, Mag, vit D levels 4/ repeat colonoscopy, he vomited last time, advised to slow his intake of prep and given zofran--half dose lantus day before f/u 6 months ? PFSH Medical History Peripheral neuropathy COVID-19 vaccine administered History of COVID-19 Diabetes Depression Arthritis Barretts esophagus Peptic ulcer GERD (gastroesophageal reflux disease) Surgical History Hx of hernia repair Hx of cardiac catheterization History of esophagogastroduodenoscopy (EGD) H/O colonoscopy Social History Household Members: None Are you a primary career portals teacher to a significant other at home: No Do you presently have visiting nurse or other home services: No Alcohol intake: never Patient Tobacco Use Status: Never used Tobacco Physical Exam Vital Signs: BMI result Body Mass Index 27.7 Assessment & Plan Assessment & Plan (1) Colon cancer screening: Code(s): Z12.11 - Encounter for screening for malignant neoplasm of colon Plan see above Medications: New ondansetron 4 mg PO Q8H PRN 7 tabs 0RF nausea and vomiting peg-electrolyte soln 420 gram until fecal effluent is clear; 240 mL PO Q10M 4,000 mL 0RF Coding Level of Care Code Est Pt Level 3 (51550) Diagnoses Colon cancer screening Z12.11
== END 2024-02-05 10:08 | disposition home or self-care (01) ==
PROVIDERS: PCP Family Medicine; Visit Provider Internal Medicine Gastroenterology
DX: K21.9 Gastro-esophageal reflux disease without esophagitis (principal); K57.30 Diverticulosis of large intestine without perforation or abscess without bleeding; K64.8 Other hemorrhoids; K63.5 Polyp of colon
CPT/HCPCS: 99213

== ENCOUNTER → 2024-02-05 08:48 | Outpatient (BNVA) | payer BC, MEDICAID, SELFPAY | PROVIDERS: PCP Family Medicine; Visit Provider Internal Medicine Gastroenterology ==

== ENCOUNTER 2024-03-14 11:56 | Outpatient (AMB) | payer BC, MEDICAID, SELFPAY ==
--- NOTE | 2024-03-14 12:13 | A.OFFVIS_ITS ---
Vital Signs 03/14/24 12:26 Height 5 ft 9 in Weight 186 lb BMI 27.5 BP 136/73 Blood Pressure Location Lt brachial Position Sitting Pulse 70 Intake Visit Reasons: 6mth follow up Intake Note: Patient follow up for chronic GERD. Patient cc: chronic GERD Tobacco Scrap Sifter Required: No Accompanied by: Self / Same As Patient Allergies alprazolam [ALPRAZOLAM] Allergy (Unknown, Verified 03/14/24 12:23) PER H&P clonazepam [CLONAZEPAM] Allergy (Unknown, Verified 03/14/24 12:23) PER H&P metformin [METFORMIN] Allergy (Unknown, Verified 03/14/24 12:23) PER H&P metoprolol [METOPROLOL] Allergy (Unknown, Verified 03/14/24 12:23) PER H&P omeprazole Allergy (Unknown, Verified 03/14/24 12:23) unknown sertraline [SERTRALINE] Allergy (Unknown, Verified 03/14/24 12:23) PER H&P trazodone [TRAZODONE] Allergy (Unknown, Verified 03/14/24 12:23) PER H&P zolpidem [From AMBIEN] Allergy (Unknown, Verified 03/14/24 12:23) PER H&P narcotics Allergy (Mild, Uncoded 02/05/24 09:04) Hallucinations HPI HPI 6mth follow up: Details: 64 yr old m here for f/u RECAP: Had originally seen Jamia Villaseñor main issues were barretts and diarrhea he was commenced on PPI, dexilant diarrhea with probiotic He was c/o upset stomach after eating, has postprandial stooling, watery d/c he has lots of gas he takes cheese with turkey, he doesn;t drink milk, takes diet coke 3 big cups daily he is already taking prilosec OTC 20 mg advised on diet, try to stop diet coke, pudding and avoid cheese, gradually reintroduce and assess response TESTS: u/s abdo--12/2018--normal GES- 02/2019-normal eGD/colonsocopy 08/2019--macias,s chronic esophagitis, tubular adenoma removed, random bx neg, melanosis coli rept egd 06/2020-- barretts, no dysplasia MRI: 02/2022- pancreas was normal EGD: 07/14-- barretts, with some inflammation--C1 M3, fundic gland polyp Colon: 12/16- polyp removed, poor prep, path: no adenoma tissue seen TRIALS: he was given trial of rifaximin, unable to tolerate align was working well for him ppI INCREASED TO BID, changed to pantoprazole then dexilant due to diarrheal symptoms with PPI INTERIM: He is v happy with sucralfate and PPi combination no nausea or vomiting appetite is good no dysphagia weight is 186# he is taking omeprazole 20 mg daily which works well EXAM: GENERAL: The patient is well developed and nontoxic. VITAL SIGNS:see workflow HEENT: Nonicteric sclerae, PERRLA, EOMI. Oropharynx clear. Moist mucous membranes. Conjunctivae appear well perfused. No thyroid mass. CHEST: Chest wall is nontender. HEART: Regular rate and rhythm without murmurs. LUNGS: Clear to auscultation bilaterally. ABDOMEN: Soft, positive bowel sounds, nontender, no organomegaly.no flank tenderness SKIN: No rash, no excessive bruising, petechiae, or purpura. NEUROLOGIC: Cranial nerves II-XII intact without motor/sensory deficit. psych--nml affect Assessments 1/ GERD, controlled clinically 2/ poor colon prep 3/ Barretts esophagus, no dysplasia PLAN: 1/ cont with omeprazole daily and carafate--separate times 2/ repeat EGD in 2-3 yrs 3/ periodic b12, iron studies, Mag, vit D levels 4/ repeat colonoscopy, is pending f/u 4 months PFSH Medical History Peripheral neuropathy COVID-19 vaccine administered History of COVID-19 Diabetes Depression Arthritis Barretts esophagus Peptic ulcer GERD (gastroesophageal reflux disease) Surgical History Hx of hernia repair Hx of cardiac catheterization History of esophagogastroduodenoscopy (EGD) H/O colonoscopy Social History Household Members: None Are you a primary managed care coordinator to a significant other at home: No Do you presently have visiting nurse or other home services: No Alcohol intake: never Patient Tobacco Use Status: Never used Tobacco Physical Exam Vital Signs: Last Vital Signs Pulse 70 03/14/24 12:26 BP 136/73 03/14/24 12:26 BMI result Body Mass Index 27.5 Assessment & Plan Assessment & Plan (1) Colon cancer screening: Code(s): Z12.11 - Encounter for screening for malignant neoplasm of colon Category: Medical Plan: PLAN: 1/ cont with omeprazole daily and carafate--separate times 2/ repeat EGD in 2-3 yrs 3/ periodic b12, iron studies, Mag, vit D levels 4/ repeat colonoscopy, is pending (2) Chronic GERD: Code(s): K21.9 - Gastro-esophageal reflux disease without esophagitis Category: Medical Plan: PLAN: 1/ cont with omeprazole daily and carafate--separate times 2/ repeat EGD in 2-3 yrs 3/ periodic b12, iron studies, Mag, vit D levels 4/ repeat colonoscopy, is pending Coding Level of Care Code Est Pt Level 3 (90826) Diagnoses Colon cancer screening Z12.11 Chronic GERD K21.9
[2024-03-14 12:26] VITALS: BP 136/73; PULSE 70; BMI 27.5
== END 2024-03-14 12:25 | disposition home or self-care (01) ==
LOC: HO.HGI 11:57
PROVIDERS: PCP Family Medicine; Visit Provider Internal Medicine Gastroenterology
DX: K21.9 Gastro-esophageal reflux disease without esophagitis (principal); Z01.818 Encounter for other preprocedural examination; Z12.11 Encounter for screening for malignant neoplasm of colon
CPT/HCPCS: 99213

== ENCOUNTER → 2024-03-14 11:56 | Outpatient (BNVA) | payer BC, MEDICAID, SELFPAY | PROVIDERS: PCP Family Medicine; Visit Provider Internal Medicine Gastroenterology ==

== ENCOUNTER 2024-06-08 06:26 | Day surgery (SDC) | payer BC, MEDICAID, SELFPAY ==
--- OUTSIDE RECORDS SUMMARY | 2024-06-08 06:28 | XMS_ITS | Patient Health Record ---
Author Organization [facility] Address [address] [place] [address] Care Team Providers Care Bank Reconciliator Name Role Phone South Duran MD Primary Care Provider Diana Tipton Unavailable [phone] ALLERGIES Allergen (clinical drug ingredient) Drug/Non Drug Allergy documented on EMR Reaction Allergy Type Onset Date Status alprazolam Alprazolam (uncoded) Unknown Allergy Active clonazepam Clonazepam (uncoded) Unknown Allergy Active metformin Metformin (uncoded) Unknown Allergy Active naproxen Naproxen (uncoded) Unknown Allergy A ctive acetaminophen / oxycodone Percocet (uncoded) Unknown Allergy Active sertraline Sertraline (uncoded) Unknown Allergy Active trazodone Trazodone (uncoded) Unknown Allergy Active Vicodin (uncoded) Unknown Allergy Ac tive celecoxib Celebrex bad dreams Drug Allergy Inacti ve RESULTS Component Value Reference Range Notes HEMOGLOBIN A1C (GLYCOHEMOGLO BIN) Reviewed date:03/15/2024 01:03:07 PM Interpretation: Performing Lab: Notes/Report: TOTAL HEMOGLOBIN (HGBA1C) HEMOGLOBIN A1C (HH) HEMOGLOBIN A1C % (HH) 6.9 ESTIMATED AVG GLUCOSE X ray : Foot, left 2V Reviewed date:03/15/2024 05:34:28 PM Interpretation:See Examination above Performing Lab: Notes/Report: See Examination above X ray : Foot, right 2V Reviewed date:03/15/2024 05:34:39 PM Interpretation:See Examination above Performing Lab: Notes/Report: See Examination above REASON FOR REFERRAL Diagnosis 1 Type 1 diabetes tomy itus with diabetic polyneuropathy (E10.42) Diagnosis 2 Other hammer toe(s) (acquired), left foot (M20.42) Diagnosis 3 Other hammer toe(s) (acquired), right foot (M20.41) Referring Provider First Name South Referring Provider Last Name Renee Referred [facility] Ricardo Referred Provider Diana Rivera Referred Address [address],[place],[address],[place] Referred Provider Specialty Podiatry Referral Priority Routine MEDICATIONS Medication SIG (Take, Route, Frequency, Duration) Notes Start Date End Date Status HumaLOG Not-Taking Lantus Not-Taking Extra-Depth Diabetic Shoes with 3 Pair Custom heat-molded multi-density innersoles . for 1 year . Dx: for . 05/11/2014 Not-T aking AFO-fixed . 1 . Wear daily for . 03/15/2024 Active AFO-fixed fixed 1 05/09/2014 Not -Taking Diprolene Not-Taking Tadalafil 20 MG TAKE ONE TABLET EVER Y 2 DAYS NEEDED Oral for 30 Days Active AFO-fixed . 1 . . for . 12/14/2013 Not-T aking Physical Therapy 3-4x per week for 3- 4 weeks 02/17/2014 Not-Taking Sucralfate 1 GM/10ML TAKE 10 ML (1 G TOT AL) BY MOUTH 4 (FOUR) TIMES A DAY WITH MEALS AND NIGHTLY. Oral for 11 Days Active Iodosorb Not-Taking Physical Therapy 3-4x per week for 3- 4 weeks Not-Taking Probiotic Active Amitriptyline HCl No t-Taking Bactrim Not-Taking Cefprozil Not-Taking Gabapentin 100 MG Orally No t-Taking diazePAM Active Extra Depth Orthopedic Shoes (1 Pair) with Customized Heat Molded Multidensity Innersoles (3 Pair) as directed Dx: IDDM/Polyneuropathy (E10.42), Hammertoe Foot Deformity (M20.41,M20.42), Preulcerative Skin Lesion(s) (L85.1) 07/23/2017 Not-Taking Insulin Lispro 02/22/2024 Acti ve Ciclopirox Olamine 0.77 % 1 application to affected area Externally Twice a day for 30 days 07/23/2017 Not-Taki ng Multivitamin - 1 tablet Orally Once a day Active Ciclopirox Olamine 0.77% external Apply to effected areas twice a day for 30 days 03/12/2016 Not-Taking Insulin Glargine Act estephania Ranitidine Not-Takin g Omeprazole 20 MG 1 capsule Orally Onc e a day for 30 day(s) Active Ciclopirox Olamine 0.77% external Apply to effected areas twice a day for 30 days 03/07/2015 Not-Taking Lift Assist as directed for dx: Drop foot 04/12/2015 Not-Taking IMMUNIZATIONS Vaccine Route Administration Date Status Comme nts Influenza Unknown 09/04/2015 Administered SOCIAL HISTORY Sex Assigned At : Social History Observation Description Sex Assigned At Unknown Tobacco use other than smoking: Question Answer Notes Are you an other tobacco user? No PROBLEMS Problem Type ICD Code Onset Dates Problem Status W/U Status Risk SNOMED Code Notes Problem Type 1 diabetes mellitus with diabetic polyneuropathy (E10.42) Active confirmed Polyneuropathy due to diabetes mellitus type I (033519361) Problem Type 2 diabetes mellitus with diabetic polyneuropathy (E11.42) Active confirmed Polyneuropathy due to type 2 diabetes mellitus (511153661) Problem Other hammer toe(s) (acquired), right foot (M20.41) Active confirmed Acquired hamme r toe of right foot (2264766299029743 ) Problem Other hammer toe(s) (acquired), left foot (M20.42) Active confirmed Acquired hamme r toe of left foot (1207099797510132 ) Problem Hammer toe of right foot (M20.41) Active confirmed 852853972 Problem Hammer toe of left foot (M20.42) Active confirmed 156780169 VITAL SIGNS Height 5 ft 9 in in 03/15/2024 Weight 187 lbs 03/15/2024 BMI 27.61 kg/m2 03/15/2024 PROCEDURES Procedure Date Ordered Date Performed Result Body Sit e 83743-HQWQNIA NAIL, 6 OR MORE 03/15/2024 N/A 30976-YXYR SKIN LESIONS, OVER 4 03/15/2024 N/A Encounters Encounter Location Date Provider Diagnosis [facility] [place] [address] [place] [address] 02/22/2024 Diana Rivera [facility] [address] [address] 03/15/2024 Diana Rivera Type 1 diabetes mellitus with diabetic polyneuropathy E10.42 ; Tinea unguium B35.1 ; Left foot drop M21.372 ; Hammer toe of right foot M20.41 ; Hammer toe of left foot M20.42 ; Toe pain, right M79.674 and Toe pain, left M79.675 [facility] [place] [address] [place] [address] 04/05/2024 Diana Rivera ASSESSMENTS Encounter Date Diagnosis Assessment Notes Treatment Notes Treatment Clinical Notes 03/15/2024 Type 1 diabetes mellitus with diabetic polyneuropathy (ICD-10 - E10.42) 03/15/2024 Tinea unguium (ICD-1 0 - B35.1) 03/15/2024 Left foot drop (ICD-10 - M21.372) 03/15/2024 Hammer toe of right foot (ICD-10 - M20.41) 03/15/2024 Hammer toe of left foot (ICD-10 - M20.42) 03/15/2024 Toe pain, right (ICD-10 - M79.674) 03/15/2024 Toe pain, left (ICD-10 - M79.675) PLAN OF TREATMENT Pending Test Test Name Order Date X ray : Ankle, right 2V 10/12/2012 X ray : Foot, right 2V 10/12/2012 79464-UQZHKQV NAIL, 6 OR MORE 03/15/2024 26703-ZWKAOIB NAIL, 6 OR MORE 03/07/2013 83433-GBEVBSI NAIL, 6 OR MORE 12/23/2012 09824-DJMFKYR NAIL, 6 OR MORE 04/14/2013 97246-LPYIQRJ NAIL, 6 OR MORE 07/05/2013 18979-XXBSXHE NAIL, 6 OR MORE 09/16/2013 76070-EYUHGKQ NAIL, 6 OR MORE 03/15/2014 09293-HMKLMNT NAIL, 6 OR MORE 02/17/2014 94166-VHDCYJM NAIL, 6 OR MORE 06/13/2015 94475-PKYKQUP NAIL, 6 OR MORE 02/09/2013 33996-WGIGCIO NAIL, 6 OR MORE 09/12/2015 71468-OYTOXQN NAIL, 6 OR MORE 06/14/2014 65655-SCMZAQV NAIL, 6 OR MORE 08/23/2014 14498-XQYLXUI NAIL, 6 OR MORE 03/07/2015 23050-ZUNGLTP NAIL, 6 OR MORE 01/09/2016 58657-ZHIVBON NAIL, 6 OR MORE 03/12/2016 44461-PWGCRTF NAIL, 6 OR MORE 05/14/2016 19474-DQYAIUO NAIL, 6 OR MORE 07/23/2016 28813-ZSZALGP NAIL, 6 OR MORE 01/01/2017 18787-NGXCHEQ NAIL, 6 OR MORE 04/02/2017 52190-CGIEQQJ NAIL, 6 OR MORE 07/16/2017 23852-JBKWGTA NAIL, 6 OR MORE 07/23/2017 34722-PLRSXBN NAIL, 1-5 12/14/2013 73165-Ysehvphz Plate 03/07/2013 22882-Cbgwlrju Plate 02/09/2013 58136- Debride <25 sq cm 07/23/2016 23897- Debride <25 sq cm 01/01/2017 79633- Debride <25 sq cm 06/07/2013 20783- Debride <25 sq cm 07/05/2013 66146- Debride <25 sq cm 08/05/2013 08431- Debride <25 sq cm 09/16/2013 83135-NXRBRFK SKIN/TISSUE 04/14/2013 62564-WZTQAVC SKIN/TISSUE 04/22/2013 02017-YGCKYUX SKIN/TISSUE 05/06/2013 18619-TYAYEEJ SKIN/TISSUE 05/20/2013 77569 I&D ABSCESS- SIMPLE,SINGLE 013 83051 I&D ABSCESS- SIMPLE,SINGLE 013 41107 I&D ABSCESS- SIMPLE,SINGLE 012 97031 I&D ABSCESS- SIMPLE,SINGLE 013 83646 I&D ABSCESS- SIMPLE,SINGLE 012 08849- I&D ABSCESS-COMPLICATED,MULTI 48116- I&D ABSCESS-COMPLICATED,MULTI 79332- I&D ABSCESS-COMPLICATED,MULTI 65773- I&D ABSCESS-COMPLICATED,MULTI 23184- I&D ABSCESS-COMPLICATED,MULTI , J0702- INJECT TENDON ORIGIN/INSER T 12/23/2012, J0702- INJECT TENDON ORIGIN/INSER T 03/07/2013, J0702- INJECT TENDON ORIGIN/INSER T 11/12/2012, J0702- INJECT TENDON ORIGIN/INSER T 02/09/2013, J0702- INJECT TENDON ORIGIN/INSER T 10/12/2012, J0702- INJECT or DRAIN, JOINT/BUR SA 10/12/2012, J0702- INJECT or DRAIN, JOINT/BUR SA 02/09/2013, J0702- INJECT or DRAIN, JOINT/BUR SA 11/12/2012, J0702- INJECT or DRAIN, JOINT/BUR SA 12/23/2012 03942-XVXL SKIN LESIONS, OVER 4 07/23/20 17 75522-VTCQ SKIN LESIONS, OVER 4 04/02/20 17 28434-RQBE SKIN LESIONS, OVER 4 01/01/20 17 38384-PNVN SKIN LESIONS, OVER 4 07/16/20 17 09503-JVXU SKIN LESIONS, OVER 4 03/07/20 15 50057-ZBLF SKIN LESIONS, OVER 4 09/12/20 15 43996-FOSM SKIN LESIONS, OVER 4 07/23/20 16 64572-FJRY SKIN LESIONS, OVER 4 05/14/20 16 45679-FBVW SKIN LESIONS, OVER 4 03/12/20 16 32323-AYDS SKIN LESIONS, OVER 4 01/09/20 16 53876-TRVM SKIN LESIONS, OVER 4 03/15/20 24 64702-BEDH SKIN LESIONS, 2 TO 4 06/14/20 14 96600-MOZZ SKIN LESIONS, 2 TO 4 08/23/20 14 34526-LPRY SKIN LESIONS, 2 TO 4 06/13/20 15 47766-XBUT SKIN LESIONS, 2 TO 4 07/05/20 13 53868-OAVL SKIN LESIONS, 2 TO 4 09/16/20 13 33743-KZVH SKIN LESION 02/09/2013 90078-JPPF SKIN LESION 12/23/2012 01012-PAJO SKIN LESION 11/12/2012 75155-KEZL SKIN LESION 03/07/2013 69303-RVFX SKIN LESION 10/12/2012 38989- Removal of Foreign Body, Subcut 0 07/23/2016 87233- Removal of Foreign Body, Subcut 0 01/01/2017 05323, J0702- Neuroma/Injection 03/15/20 14 84040, J0702- Neuroma/Injection 09/16/20 13 Next Appt Details Provider Name:Diana Rivera , 06/21/2024 01:00:00 PM, [address], [place], [address], Insurance Providers Payer Name Payer Address Payer Phone Subscriber Number Group Number Insured Name Patient Relationship to Insured Coverage Start Date Coverage End Date [facility] [address] [place] [address] [id number] Jamarcus Coates Self - patient is the insured MEDICAL (GENERAL) HISTORY Medical History History ICD Code anxiety Arthritis back, hip, knee pain depression diabetic Gout high blood pressure neuropathy poor circulation psoriasis psychiatric disorder reflux sciatica warts Surgical History Surgery Date(Month/Year) hernia colonoscopy 11/2013 Hospitalization History Reason Date(Month/Year) [facility] for stomach issues 09/2016-10/2016
[2024-06-08 07:05] VITALS: BP 139/77; PULSE 71; RESP 18; TEMP 36.4; O2SAT 97; BMI 26.6
[2024-06-08 07:15] LABS: Glucose, Whole Blood 103 mg/dL (60-115)
[2024-06-08] MEDS: Lactated Ringers 1,000 ML 50 ML IVCONT (07:26)
--- NOTE | 2024-06-08 08:22 | MHC.SHP ---
Pre-Procedural Eval Section A - 24 Hr Update-Section A only Date of Service: 06/08/24 Section B - Complete if H&P > 30 days Chief Complaint: screening Relevant Family History (Specify if Yes): No Relevant Social History: None Present Medications: see Short Stay Collaborative assessment Medical History: Significant History ( Peripheral neuropathy COVID-19 vaccine administered History of COVID-19 Diabetes Depression Arthritis Barretts esophagus Peptic ulcer GERD (gastroesophageal reflux disease)) History of Previous Operations: Relevant previous surgery/procedure and date(s) ( Hx of hernia repair Hx of cardiac catheterization History of esophagogastroduodenoscopy (EGD) H/O colonoscopy) Allergies: Allergies Allergy/AdvReac Type Severity Reaction Status Date / Time alprazolam [ALPRAZOLAM] Allergy Unknown PER H&P Verified 06/08/24 06:52 clonazepam [CLONAZEPAM] Allergy Unknown PER H&P Verified 06/08/24 06:52 metformin [METFORMIN] Allergy Unknown PER H&P Verified 06/08/24 06:52 metoprolol [METOPROLOL] Allergy Unknown PER H&P Verified 06/08/24 06:52 omeprazole Allergy Unknown unknown Verified 06/08/24 06:52 sertraline [SERTRALINE] Allergy Unknown PER H&P Verified 06/08/24 06:52 trazodone [TRAZODONE] Allergy Unknown PER H&P Verified 06/08/24 06:52 zolpidem [From AMBIEN] Allergy Unknown PER H&P Verified 06/08/24 06:52 narcotics Allergy Mild Hallucinati Uncoded 06/08/24 06:52 ons Review of Systems Sugical H&P ROS: Negative: Constitution, Cardiovascular, Respiratory, Neurological, Psychiatric, Hem-Onc, Allergic/Immunologic, Gastrointestinal, Genitourinary, Musculoskeletal, Integumentary, Endocrine and Eyes/Ears/Nose/Throat Exam Surgical H&P Exam: Normal: HEENT, Normal: Heart, Normal: Lungs, Normal: Extremities, Normal: Abdomen, Normal: Skin and Normal: Neurological Plan Diagnosis/Plan: Unchanged I have reviewed the history and physical and performed a pertinent physical examination on my patient. No changes have occurred unless specified. Time Spent With Patient Time: Total time managing care of this patient today ____ minutes.
--- NOTE | 2024-06-08 08:23 | P.OPN-COLO_ITS ---
Colonoscopy Operative Note Operative Note Date of Service: 06/08/24 Narrative: Operative Information Procedure Description: Colonoscopy Indication: screening Anesthesia: MAC COLONOSCOPY Instrument: Olympus variable stiffness pediatric scope 190L Colonoscopy Monitoring: Vital signs and clinical assessment, continuous EKG monitoring, Pulse oximetry, Carbon Dioxide monitoring and blood pressure monitoring were done throughout the procedure. Colon withdrawal time was 10 minutes. Procedure: The patient was placed in the left lateral decubitis position and pre-procedure medications were administered. After a digital rectal examination of the ano-rectum, the video colonoscope was inserted into the rectum and advanced through the colon to the cecum/TI. The colonoscope was slowly withdrawn in a retrograde panoramic fashion and the colon mucosa was carefully examined including a retroflexed view of the rectum. Findings and interventions are described below. Procedure Difficulty: moderate, pressure applied Findings: Terminal Ileum-normal Cecum:normal Ascending Colon: normal Transverse Colon -normal Descending Colon:normal Sigmoid Colon: moderate diverticulosis Rectum: Retroflexion with small internal hemorrhoids seen, grade I Anorectum - normal Intervention: none Colon preparation: [place] Bowel Preparation Scale Right colon; 1-2 Transverse colon: 2 Left colon; 2 (0 = Unprepared colon segment with mucosa not seen due to solid stool that cannot be cleared. 1 = Portion of mucosa of the colon segment seen, but other areas of the colon segment not well seen due to staining, residual stool and/or opaque liquid. 2 = Minor amount of residual staining, small fragments of stool and/or opaque liquid, but mucosa of colon segment seen well. 3 = Entire mucosa of colon segment seen well with no residual staining, small fragments of stool or opaque liquid) Impression and Post Procedure Diagnosis: diverticulosis internal hemorrhoids Plan: High fiber diet leaflet Avoid straining at stool, epsom salts and sitz bath, anusol supps or cream Repeat Colonoscopy in 5 years due to fair prep on right or earlier if clinically indicated Above findings were reviewed with the patient and relevant handouts were provided if indicated.
--- NOTE | 2024-06-08 08:43 | P.CONAN_ITS ---
FORMERLY [facility], [facility] Active Problems Active Problems: All Active Problems Chronic GERD (Acute) Colon cancer screening (Acute) Pancreatic insufficiency (Acute) Diarrhea (Acute) Past Medical History Medical History Peripheral neuropathy COVID-19 vaccine administered History of COVID-19 Diabetes Depression Arthritis Barretts esophagus Peptic ulcer GERD (gastroesophageal reflux disease) Family History Family history of problems with anesthesia: No Surgical History Surgical History Hx of hernia repair Hx of cardiac catheterization History of esophagogastroduodenoscopy (EGD) H/O colonoscopy History of Problems with Anesthesia: No Social History Social History Household Members: None Are you a primary assurance services manager health care to a significant other at home: No Do you presently have visiting nurse or other home services: No Alcohol intake: never Patient Tobacco Use Status: Never used Tobacco Meds Allergies Allergy/AdvReac Type Severity Reaction Status Date / Time alprazolam [ALPRAZOLAM] Allergy Unknown PER H&P Verified 06/08/24 06:52 clonazepam [CLONAZEPAM] Allergy Unknown PER H&P Verified 06/08/24 06:52 metformin [METFORMIN] Allergy Unknown PER H&P Verified 06/08/24 06:52 metoprolol [METOPROLOL] Allergy Unknown PER H&P Verified 06/08/24 06:52 omeprazole Allergy Unknown unknown Verified 06/08/24 06:52 sertraline [SERTRALINE] Allergy Unknown PER H&P Verified 06/08/24 06:52 trazodone [TRAZODONE] Allergy Unknown PER H&P Verified 06/08/24 06:52 zolpidem [From AMBIEN] Allergy Unknown PER H&P Verified 06/08/24 06:52 narcotics Allergy Mild Hallucinati Uncoded 06/08/24 06:52 ons Active Medications: Current Medications Lactated Ringer's (Lr) 1,000 mls @ 50 mls/hr IVCONT .Q20H JASMYN Last Admin: 06/08/24 07:26 Dose: 50 mls/hr Home Medications ?Medication ?Instructions ?Recorded ?Confirmed ?Last Taken ?Type blood-glucose meter #1 ea 02/19/21 06/08/24 Unknown History diazepam 5 mg tablet 5 mg PO BEDTIME 02/19/21 06/08/24 Unknown History insulin lispro 100 unit/mL 5 unit subcut TIDAC 02/19/21 06/08/24 Unknown History subcutaneous pen insulin syr/ndl U100 half louis 0.3 #10 ea 02/19/21 06/08/24 Unknown History mL 31 gauge x 5/16 lancets 28 gauge #100 ea 02/19/21 06/08/24 Unknown History blood sugar diagnostic (Accu-Chek #10 ea 04/25/22 06/08/24 Unknown History Guide test strips) insulin glargine 100 unit/mL 18 unit subcut BEDTIME 04/25/22 06/08/24 Unknown History subcutaneous solution (Lantus U-100 Insulin) insulin syringe-needle U-100 0.3 #10 ea 04/25/22 06/08/24 Unknown History mL 31 gauge x 15/64 (BD Veo Insulin Syringe Ultra-Fine) sildenafil 100 mg tablet 100 mg PO DAILY PRN Erectile 04/25/22 06/08/24 Unknown History Dysfunction acetaminophen 500 mg tablet 1,000 mg PO TID 07/17/22 06/08/24 Unknown History omeprazole 20 mg capsule,delayed 20 mg PO DAILY 09/07/23 06/08/24 06/08/24 History release Exam Height,Weight and Vital Signs: Height 5 ft 9 in Weight 81.647 kg Last Vital Signs Temp 97.5 F 06/08/24 07:05 Pulse 71 06/08/24 07:05 Resp 18 06/08/24 07:05 BP 139/77 06/08/24 07:05 Pulse Ox 97 06/08/24 07:05 O2 Del Method Room Air 06/08/24 07:05 Pertinent Lab Results Pertinent Lab Results: Laboratory Tests 06/08/24 07:11 POC Glucose 103 Airway Mallampati Class: II TM Dist: >3cm Neck ROM: Full Heart: RRR Lungs: CTA Assessment and Plan Assessment Anesthesia Assessment: Anesthesia Plan Discussed Final Anesthetic Review Family History of Problems with Anesthesia: No History of Problems with Anesthesia: No ASA Class: II Final Preanesthetic Review: Meds/Allgs Chart Reviewed, Consent Obtained/Reviewed and Anes Risks/Benef Reviewed Patient Risk: Low Procedure Risk: Low Anesthetic Plan Anesthetic Plan: MAC: Disposition: Standard PACU
[2024-06-08 09:04] VITALS: BP 93/53; PULSE 72; RESP 16; TEMP 36.2; O2SAT 94
[2024-06-08 09:19] VITALS: BP 103/63; PULSE 68; RESP 16; O2SAT 96
[2024-06-08 09:34] VITALS: BP 117/74; PULSE 63; RESP 14; TEMP 36.2; O2SAT 98
--- NOTE | 2024-06-08 11:14 | HO.POSTANES ---
Post Anesthesia Evaluation Post Anesthesia Evaluation Date of Service: 06/08/24 Vital Signs: Vital Signs Temp Pulse Resp BP Pulse Ox O2 Del Method 06/08/24 09:34 97.1 F 63 14 117/74 98 Room Air 06/08/24 09:19 68 16 103/63 96 Room Air 06/08/24 09:04 97.1 F 72 16 93/53 L 94 Room Air 06/08/24 07:05 97.5 F 71 18 139/77 97 Room Air Anesthesia: Monitored Mental Status: Awake Pain Control: Satisfactory Nausea/Vomiting: None Hydration: Adequate Anesthesia-Related Issues: No Anes. Related Issues
== END 2024-06-08 11:43 | disposition home or self-care (01) ==
PROVIDERS: PCP Family Medicine; Visit Provider Internal Medicine Gastroenterology
PROC: 0DJD8ZZ Inspection of Lower Intestinal Tract, Via Natural or Artificial Opening Endoscopic (ICD-10-PCS; CPT 45378; principal; 2024-06-08 08:30)
DX: Z12.11 Encounter for screening for malignant neoplasm of colon (principal); K57.30 Diverticulosis of large intestine without perforation or abscess without bleeding; K64.0 First degree hemorrhoids; K21.9 Gastro-esophageal reflux disease without esophagitis; K22.70 Barrett's esophagus without dysplasia; Z87.11 Personal history of peptic ulcer disease; E11.9 Type 2 diabetes mellitus without complications; G62.9 Polyneuropathy, unspecified; F32.A Depression, unspecified; Z79.4 Long term (current) use of insulin; Z79.899 Other long term (current) drug therapy; Z88.8 Allergy status to other drugs, medicaments and biological substances; Z88.5 Allergy status to narcotic agent; Z98.890 Other specified postprocedural states
CPT/HCPCS: 45378; 82947; J2704

== ENCOUNTER → 2024-06-08 06:26 | Outpatient (BNV) | payer BC, MEDICAID, SELFPAY | PROVIDERS: PCP Family Medicine; Visit Provider Internal Medicine Gastroenterology | DX: Z12.11 Encounter for screening for malignant neoplasm of colon (principal); K57.30 Diverticulosis of large intestine without perforation or abscess without bleeding; K64.0 First degree hemorrhoids | CPT/HCPCS: 45378 ==

== ENCOUNTER 2024-06-24 10:51 | Outpatient (AMB) | payer BC, MEDICAID, SELFPAY ==
--- NOTE | 2024-06-24 11:00 | A.OFFVIS_ITS ---
Vital Signs 06/24/24 11:03 Height 5 ft 9 in BP 136/79 Blood Pressure Location Lt brachial Position Sitting Pulse 77 Intake Visit Reasons: f/u Colonoscopy Intake Note: Jamarcus presents in the office as a follow up colonoscopy. CC: Here for results. He states that he is not having any concerns at this time. Cook Chief Required: No Allergies alprazolam [ALPRAZOLAM] Allergy (Unknown, Verified 06/24/24 11:04) PER H&P clonazepam [CLONAZEPAM] Allergy (Unknown, Verified 06/24/24 11:04) PER H&P metformin [METFORMIN] Allergy (Unknown, Verified 06/24/24 11:04) PER H&P metoprolol [METOPROLOL] Allergy (Unknown, Verified 06/24/24 11:04) PER H&P omeprazole Allergy (Unknown, Verified 06/24/24 11:04) unknown sertraline [SERTRALINE] Allergy (Unknown, Verified 06/24/24 11:04) PER H&P trazodone [TRAZODONE] Allergy (Unknown, Verified 06/24/24 11:04) PER H&P zolpidem [From AMBIEN] Allergy (Unknown, Verified 06/24/24 11:04) PER H&P narcotics Allergy (Mild, Uncoded 06/24/24 11:04) Hallucinations HPI Comments Details: 64 yr old m here for f/u RECAP: Had originally seen Jamia Villaseñor main issues were barretts and diarrhea he was commenced on PPI, dexilant diarrhea with probiotic He was c/o upset stomach after eating, has postprandial stooling, watery d/c he has lots of gas he takes cheese with turkey, he doesn;t drink milk, takes diet coke 3 big cups daily he is already taking prilosec OTC 20 mg advised on diet, try to stop diet coke, pudding and avoid cheese, gradually reintroduce and assess response TESTS: u/s abdo--12/2018--normal GES- 02/2019-normal eGD/colonsocopy 08/2019--macias,s chronic esophagitis, tubular adenoma removed, random bx neg, melanosis coli rept egd 06/2020-- barretts, no dysplasia MRI: 02/2022- pancreas was normal EGD: 07/14-- barretts, with some inflammation--C1 M3, fundic gland polyp Colon: 12/16- polyp removed, poor prep, path: no adenoma tissue seen colon: 06/15- diverticulosis - 5 yr f/u TRIALS: he was given trial of rifaximin, unable to tolerate align was working well for him ppI INCREASED TO BID, changed to pantoprazole then dexilant due to diarrheal symptoms with PPI INTERIM: Reviewed colonoscopy results with diverticulosis, no nausea or vomiting appetite is good awaiting spinal surgery he is taking PPI--no issues EXAM: GENERAL: The patient is well developed and nontoxic. VITAL SIGNS:see workflow HEENT: Nonicteric sclerae, PERRLA, EOMI. Oropharynx clear. Moist mucous membranes. Conjunctivae appear well perfused. No thyroid mass. CHEST: Chest wall is nontender. HEART: Regular rate and rhythm without murmurs. LUNGS: Clear to auscultation bilaterally. ABDOMEN: Soft, positive bowel sounds, nontender, no organomegaly.no flank tenderness SKIN: No rash, no excessive bruising, petechiae, or purpura. NEUROLOGIC: Cranial nerves II-XII intact without motor/sensory deficit. psych--nml affect Assessments 1/ GERD, controlled clinically 2/ poor colon prep 3/ Barretts esophagus, no dysplasia PLAN: 1/ cont with omeprazole daily and carafate--separate times 2/ repeat EGD beginning on next year f/u 6 months PFSH Medical History Peripheral neuropathy COVID-19 vaccine administered History of COVID-19 Diabetes Depression Arthritis Barretts esophagus Peptic ulcer GERD (gastroesophageal reflux disease) Surgical History Hx of hernia repair Hx of cardiac catheterization History of esophagogastroduodenoscopy (EGD) H/O colonoscopy Social History Household Members: None Are you a primary progressive care unit registered nurse to a significant other at home: No Do you presently have visiting nurse or other home services: No Alcohol intake: never Patient Tobacco Use Status: Never used Tobacco Physical Exam Vital Signs: Last Vital Signs Pulse 77 06/24/24 11:03 BP 136/79 06/24/24 11:03 Assessment & Plan Assessment & Plan (1) Chronic GERD: Code(s): K21.9 - Gastro-esophageal reflux disease without esophagitis Category: Medical Plan: see above Coding Level of Care Code Est Pt Level 3 (35257) Diagnoses Chronic GERD K21.9
[2024-06-24 11:03] VITALS: BP 136/79; PULSE 77
== END 2024-06-24 11:52 | disposition home or self-care (01) ==
PROVIDERS: PCP Family Medicine; Visit Provider Internal Medicine Gastroenterology
DX: K21.9 Gastro-esophageal reflux disease without esophagitis (principal)
CPT/HCPCS: 99213

== ENCOUNTER → 2024-06-24 10:51 | Outpatient (BNVA) | payer BC, MEDICAID, SELFPAY | PROVIDERS: PCP Family Medicine; Visit Provider Internal Medicine Gastroenterology ==

== ENCOUNTER 2024-08-12 08:18 | Outpatient (REF) | payer BC, MEDICAID, SELFPAY ==
--- NOTE | ~2024-08-12 | XR_ITS ---
EXAMINATION: XR LUMBOSACRAL SPINE CLINICAL INFORMATION: M48.062 - Spinal stenosis, lumbar region with neurogenic claudication COMPARISON: 1 None available. TECHNIQUE: 4 views of the lumbar spine, inclusive of flexion and extension views, were obtained. FINDINGS: There is normal mineralization. There is no acute fracture, compression deformity, or suspicious bone lesion. There is a minimal dextroconvex scoliosis. There is a mildly straightened lordosis. There is a 7 mm anterolisthesis of L4 upon L5, which stays static in extension but increases to 10 mm on flexion, suggesting possible instability at this level. No additional significant subluxations are evident. There are extensive multilevel advanced degenerative disc changes with ventral and lateral marginal disc osteophytes, findings which are worst at L5-S1. There are multilevel hypertrophic degenerative facet changes spanning predominantly L2-L5. There are no soft tissue abnormalities. XR/XR lumbar spine 4V min IMPRESSION: 1. No acute bony abnormalities of the lumbar spine. 2. Advanced multilevel spondylosis. 3. 7 mm anterolisthesis at L4-5, increases to 10 mm on flexion view suggesting possible instability at this level. Electronically signed by: Sagar Najera MD 10/23/2024 09:04 PM [facility] [place]
== END 2024-08-12 08:19 | disposition home or self-care (01) ==
LOC: HO.XRAY 08:18
PROVIDERS: PCP Family Medicine; Visit Provider Neurological Surgery
DX: M48.062 Spinal stenosis, lumbar region with neurogenic claudication (principal)
CPT/HCPCS: 72110

== ENCOUNTER 2024-08-12 08:18 | Outpatient (AMB) | payer BC, MEDICAID, SELFPAY ==
--- NOTE | 2024-08-12 08:54 | A.SPINEOV_ITS ---
Intake Visit Reasons: lumbar radiculopathy/second opinion Intake Note: Mr. Coates is here today c/o low back pain. Airport Shuttle Driver Required: No Allergies alprazolam [ALPRAZOLAM] Allergy (Unknown, Verified 08/12/24 08:58) PER H&P clonazepam [CLONAZEPAM] Allergy (Unknown, Verified 08/12/24 08:58) PER H&P metformin [METFORMIN] Allergy (Unknown, Verified 08/12/24 08:58) PER H&P metoprolol [METOPROLOL] Allergy (Unknown, Verified 08/12/24 08:58) PER H&P omeprazole Allergy (Unknown, Verified 08/12/24 08:58) unknown sertraline [SERTRALINE] Allergy (Unknown, Verified 08/12/24 08:58) PER H&P trazodone [TRAZODONE] Allergy (Unknown, Verified 08/12/24 08:58) PER H&P zolpidem [From AMBIEN] Allergy (Unknown, Verified 08/12/24 08:58) PER H&P narcotics Allergy (Mild, Uncoded 06/24/24 11:04) Hallucinations Assessment & Plan Assessment & Plan (1) Lumbar stenosis with neurogenic claudication: Code(s): M48.062 - Spinal stenosis, lumbar region with neurogenic claudication Category: Medical Plan: Dear colleague Thank you for referring Jamarcus Coates for 2nd opinion to the office today with a chief complaint of left leg pain. HPI: This 64-year-old male with known idiopathic neuropathy comes to the office complaining of a progressive pain radiating down his left leg to the outside of his ankle. The pain comes with walking and standing and improves when he sits down or leans forward. He denies pain on the right side. He does have severe atrophy of his hands and bilateral footdrop with the left side worse than the right side. The symptoms have been going on for many years and are most likely related to the neuropathy. He was seen at [facility] where he was offered a lumbar decompression. The following conservative treatment options were tried without success antiinflammatories, tylenol, physical therapy, massage therapy, chiropractic therapy physician guided home exercise plan PMH: Diabetes mellitus, pancreatic insufficiency, polyneuropathy. GERD Medications: Tylenol, insulin, diazepam, omeprazole, sleep [place], sucralfate Allergies: Alprazolam, clonazepam, metformin, metoprolol, omeprazole, sertraline, trazodone, zolpidem Social history: Nonsmoker Physical Exam: Pleasant male. He ambulates with a bilateral footdrop with the left side is more affected than the right side. He has not ankle-foot orthosis on the left side. There is a grade 3/5 weakness of the dorsiflexors on the right side. So grade 1/5 on the left. No sensory deficits with the exception of the left foot. Severe atrophy of the intrinsic musculature of bilateral hands. A reflexia. Radiological Studies: MRI done at [facility] on 03/26/2024 shows multilevel degenerative disc disease with a near collapse disc at L5-S1. More importantly there is moderate to severe L4-5 spinal stenosis with significant left lateral recess stenosis compressing the L5 nerve root . Dynamic lumbar x-rays today show a stable grade 1 spondylolisthesis L4-5 Impression/Plan: This patient is suffering from unilateral neurogenic claudication causing left leg pain with walking and standing. Symptoms are caused by lateral recess stenosis L4-5. I made the patient aware that an lumbar laminotomy we will most likely address the pain but will not have any influence on the other neurological symptoms that are classic for a polyneuropathy. He already had preoperative clearance from his primary care physician as he was originally scheduled at [facility]. His last A1c was 6.9. He is scheduled for September 15 Thank you for allowing me to participate in your patients care. total time spent was 50 minutes in counseling ,coordination of plan, personal review of imaging, surgical decision making and subsequent plan Soren Rivers MD, PhD Spine Fellowship Trained Neurosurgeon Director, [facility] Plan Temp Orders: Orders XR lumbar spine 4V min Today M48.062 - Spinal stenosis, lumbar region with neurogenic claudication Coding Level of Care Code New Pt Level 4 (30925) Diagnoses Lumbar stenosis with neurogenic claudication M48.062
== END 2024-08-12 10:37 | disposition home or self-care (01) ==
PROVIDERS: PCP Family Medicine; Visit Provider Neurological Surgery
DX: M48.062 Spinal stenosis, lumbar region with neurogenic claudication (principal)
CPT/HCPCS: 99204

== ENCOUNTER → 2024-08-12 09:48 | Outpatient (BNV) | payer BC, MEDICAID, SELFPAY | PROVIDERS: PCP Family Medicine; Visit Provider Radiology Diagnostic Radiology | DX: M48.062 Spinal stenosis, lumbar region with neurogenic claudication (principal) | CPT/HCPCS: 72110 ==

== ENCOUNTER 2024-09-01 | Outpatient (REF) | payer BC, MEDICAID, SELFPAY ==
--- NOTE | 2024-09-01 | ECG_ITS ---
Test Reason : PRE OP Blood Pressure : / mmHG Vent. Rate : 066 BPM Atrial Rate : 066 BPM P-R Int : 128 ms QRS Dur : 094 ms QT Int : 390 ms P-R-T Axes : 008 -17 043 degrees QTc Int : 408 ms Normal sinus rhythm Minimal voltage criteria for LVH, may be normal variant ( R in aVL ) Nonspecific ST and T wave abnormality Abnormal ECG When compared with ECG of 29-OCT-2016 13:24, No significant change was found Referred By: Edilma Boo Electronically Signed By:LAMONT ENRIQUEZ MD
--- NOTE | 2024-09-01 12:55 | HO.ANESPROP2 ---
HPI - Anesthesia Eval Consult details Narrative: 64yo M for Left L4-5 Lumbar Decompression, pending reschedule Pt declines oxycodone during periop, would like to limit narcotics No recent illness No CP/SOB with stationary bike ~ 1hr GERD: well controlled on ppi IDDM: FBS ~ 70-140 Hx Cardiac Cath 2008: false +stress, negative cath PMFSH Active Problems Active Problems: All Active Problems Lumbar stenosis with neurogenic claudication (Acute) Chronic GERD (Acute) Colon cancer screening (Acute) Pancreatic insufficiency (Acute) Diarrhea (Acute) Past Medical History Medical History (Updated 09/01/24 @ 13:05 by Renee Mckay RN) History of foot drop Peripheral neuropathy COVID-19 vaccine administered History of COVID-19 Diabetes Depression Arthritis Barretts esophagus Peptic ulcer GERD (gastroesophageal reflux disease) Family History Family history of problems with anesthesia: Unobtainable (Adopted) Surgical History Surgical History Hx of hernia repair Hx of cardiac catheterization History of esophagogastroduodenoscopy (EGD) H/O colonoscopy History of Problems with Anesthesia: No (Sensitive to narcotics) Social History Social History Household Members: None Are you a primary ambulatory care to a significant other at home: No Do you presently have visiting nurse or other home services: No Alcohol intake: never Patient Tobacco Use Status: Never used Tobacco Use of substances other than those prescribed or required for medical reasons: No Have you been hit, kicked, punched, or otherwise hurt by someone within the past year? If so, by whom?: No Are you DNR?: No Advance Directives: No Advance Directives Information Provided: No Advance Directives on File: No Recently lost weight without trying: No Eating poorly because of decreased appetite: No Nutrition Risks: No Nutritional Risk Poor oral hygiene: Yes (crowns upper and lower) Meds Allergies Allergy/AdvReac Type Severity Reaction Status Date / Time alprazolam [ALPRAZOLAM] Allergy Unknown PER H&P Verified 08/12/24 08:58 clonazepam [CLONAZEPAM] Allergy Unknown PER H&P Verified 08/12/24 08:58 metformin [METFORMIN] Allergy Unknown PER H&P Verified 08/12/24 08:58 metoprolol [METOPROLOL] Allergy Unknown PER H&P Verified 08/12/24 08:58 sertraline [SERTRALINE] Allergy Unknown PER H&P Verified 08/12/24 08:58 trazodone [TRAZODONE] Allergy Unknown PER H&P Verified 08/12/24 08:58 zolpidem [From AMBIEN] Allergy Unknown PER H&P Verified 08/12/24 08:58 narcotics Allergy Mild Hallucinati Uncoded 06/24/24 11:04 ons Home Medications ?Medication ?Instructions ?Recorded ?Confirmed ?Last Taken ?Type blood-glucose meter #1 ea 02/19/21 06/08/24 Unknown History diazepam 5 mg tablet 5 mg PO BEDTIME 02/19/21 09/01/24 Unknown History insulin lispro 100 unit/mL 7 unit subcut TIDAC 02/19/21 09/01/24 Unknown History subcutaneous pen insulin syr/ndl U100 half louis 0.3 #10 ea 02/19/21 06/08/24 Unknown History mL 31 gauge x 5/16 lancets 28 gauge #100 ea 02/19/21 06/08/24 Unknown History blood sugar diagnostic (Accu-Chek #10 ea 04/25/22 06/08/24 Unknown History Guide test strips) insulin glargine 100 unit/mL 18 unit subcut BEDTIME 04/25/22 09/01/24 Unknown History subcutaneous solution (Lantus U-100 Insulin) insulin syringe-needle U-100 0.3 #10 ea 04/25/22 06/08/24 Unknown History mL 31 gauge x 15/64 (BD Veo Insulin Syringe Ultra-Fine) sildenafil 100 mg tablet 100 mg PO DAILY PRN Erectile 04/25/22 09/01/24 Unknown History Dysfunction acetaminophen 500 mg tablet 500 mg PO QAM 07/17/22 09/01/24 Unknown History omeprazole 20 mg capsule,delayed 20 mg PO BID 09/07/23 09/01/24 06/08/24 History release acetaminophen 500 mg tablet 1,000 mg PO BEDTIME PRN Pain 09/01/24 09/01/24 Unknown History multivitamin 1 tab PO DAILY 09/01/24 09/01/24 Unknown History sucralfate 100 mg/mL oral 10 ml PO DAILY 09/01/24 09/01/24 Unknown History suspension Exam Airway Mallampati Class: II TM Dist: >3cm Neck ROM: Full Loose/Missing/Broken Teeth: No (1 x crown) Heart: RRR Lungs: CTAB Assessment and Plan Assessment Anesthesia Assessment: Anesthesia Plan Discussed and PAT Visit Final Anesthetic Review Family History of Problems with Anesthesia: Unobtainable (Adopted) History of Problems with Anesthesia: No (Sensitive to narcotics)
[2024-09-01 13:22] VITALS: BP 153/71; PULSE 74; RESP 18; O2SAT 96; BMI 27.3
[2024-09-01 14:44] LABS: Hematocrit 46.5 % (42.0-52.0); Hemoglobin 15.2 g/dl (14.0-18.0); Mean Corpuscular HGB Conc 32.7 g/dl (31.0-36.0); Mean Corpuscular Hemoglobin 29.9 pg (27.0-33.0); Mean Corpuscular Volume 91.5 fL (80.0-98.0); Mean Platelet Volume 10.3 fL (9.4-12.4); Platelet Count 203 X10*3/uL (160-400); Red Blood Count 5.08 X10*6/uL (4.60-5.80); Red Cell Distribution Width 12.2 % (11.0-16.0); White Blood Count 9.4 X10*3/uL (4.8-10.8)
[2024-09-01 15:13] LABS: Anion Gap 8 (12-20); Blood Urea Nitrogen 15 mg/dL (9-16); Calcium 9.4 mg/dL (8.4-10.2); Carbon Dioxide 32 mmol/L (22-29); Chloride 103 mmol/L (96-108); Creatinine Clr Calc Pharmacy 85.9; Estimated Glomerular Filt Rate > 60; Glucose Random 186 mg/dL (60-115); Potassium 3.9 mmol/L (3.3-5.1); Sodium 139 mmol/L (135-145)
== END 2024-09-01 00:01 ==
LOC: HO.PAT
PROVIDERS: Nurse Practitioner; PCP Family Medicine; Visit Provider Neurological Surgery
DX: Z01.812 Encounter for preprocedural laboratory examination (principal); M48.062 Spinal stenosis, lumbar region with neurogenic claudication
CPT/HCPCS: 36415; 80048; 85027; 93005

== ENCOUNTER → 2024-09-01 14:04 | Outpatient (BNV) | payer BC, MEDICAID, SELFPAY | PROVIDERS: PCP Family Medicine; Visit Provider Internal Medicine Cardiovascular Disease | DX: R94.31 Abnormal electrocardiogram [ECG] [EKG] (principal) | CPT/HCPCS: 93010 ==

== ENCOUNTER 2024-12-07 08:19 | Day surgery (SDC) | payer BC, MEDICAID, SELFPAY ==
[2024-12-05 14:23] VITALS: BMI 27.5
--- NOTE | 2024-12-06 11:52 | HO.ANESPROP2 ---
Documented by User: Edilma Boo NP 12/06/24 11:53 HPI - Anesthesia Eval Consult details Narrative: 64yo M for Upper Endoscopy with RILEY and tissue [facility] Active Problems Active Problems: All Active Problems Lumbar stenosis with neurogenic claudication (Acute) Chronic GERD (Acute) Colon cancer screening (Acute) Pancreatic insufficiency (Acute) Diarrhea (Acute) Past Medical History Medical History History of foot drop Peripheral neuropathy Diabetes Depression Arthritis Barretts esophagus Peptic ulcer GERD (gastroesophageal reflux disease) Family History Family history of problems with anesthesia: Unobtainable (Adopted) Surgical History Surgical History Hx of hernia repair Hx of cardiac catheterization History of esophagogastroduodenoscopy (EGD) H/O colonoscopy History of Problems with Anesthesia: No (Sensitive to narcotics) Social History Social History Household Members: None Are you a primary career development coordinator/teacher to a significant other at home: No Do you presently have visiting nurse or other home services: No Alcohol intake: never Patient Tobacco Use Status: Never used Tobacco Use of substances other than those prescribed or required for medical reasons: No Are you DNR?: No Advance Directives: No Advance Directives Information Provided: Yes Nutrition Risks: No Nutritional Risk Poor oral hygiene: No Meds Allergies Allergy/AdvReac Type Severity Reaction Status Date / Time alprazolam [ALPRAZOLAM] Allergy Unknown PER H&P Verified 08/12/24 08:58 clonazepam [CLONAZEPAM] Allergy Unknown PER H&P Verified 08/12/24 08:58 metformin [METFORMIN] Allergy Unknown PER H&P Verified 08/12/24 08:58 metoprolol [METOPROLOL] Allergy Unknown PER H&P Verified 08/12/24 08:58 sertraline [SERTRALINE] Allergy Unknown PER H&P Verified 08/12/24 08:58 trazodone [TRAZODONE] Allergy Unknown PER H&P Verified 08/12/24 08:58 zolpidem [From AMBIEN] Allergy Unknown PER H&P Verified 08/12/24 08:58 narcotics Allergy Mild Hallucinati Uncoded 06/24/24 11:04 ons Home Medications ?Medication ?Instructions ?Recorded ?Confirmed ?Last Taken ?Type blood-glucose meter #1 ea 02/19/21 12/05/24 Unknown History diazepam 5 mg tablet 5 mg PO BEDTIME 02/19/21 12/05/24 12/06/24 History insulin lispro 100 unit/mL 7 unit subcut TIDAC 02/19/21 12/05/24 12/06/24 History subcutaneous pen insulin syr/ndl U100 half louis 0.3 #10 ea 02/19/21 12/05/24 Unknown History mL 31 gauge x 5/16 lancets 28 gauge #100 ea 02/19/21 12/05/24 Unknown History blood sugar diagnostic (Accu-Chek #10 ea 04/25/22 12/05/24 Unknown History Guide test strips) insulin glargine 100 unit/mL 18 unit subcut BEDTIME 04/25/22 12/05/24 12/06/24 History subcutaneous solution (Lantus U-100 Insulin) insulin syringe-needle U-100 0.3 #10 ea 04/25/22 12/05/24 Unknown History mL 31 gauge x 15/64 (BD Veo Insulin Syringe Ultra-Fine) sildenafil 100 mg tablet 100 mg PO DAILY PRN Erectile 04/25/22 12/05/24 Unknown History Dysfunction acetaminophen 500 mg tablet 500 mg PO QAM 07/17/22 12/05/24 12/06/24 History omeprazole 20 mg capsule,delayed 20 mg PO BID 09/07/23 12/05/24 12/06/24 History release acetaminophen 500 mg tablet 1,000 mg PO BEDTIME PRN Pain 09/01/24 12/05/24 12/06/24 History multivitamin 1 tab PO DAILY 09/01/24 12/05/24 12/06/24 History sucralfate 100 mg/mL oral 10 ml PO DAILY 09/01/24 12/05/24 12/06/24 History suspension Exam Height,Weight and Vital Signs: Height 5 ft 9 in Weight 84.368 kg Pertinent Lab Results Pertinent Lab Results: Laboratory Tests 09/01/24 14:17 WBC 9.4 Hgb 15.2 Hct 46.5 Plt Count 203 Sodium 139 Potassium 3.9 Chloride 103 Carbon Dioxide 32 H BUN 15 Creatinine 0.88 Narrative Narrative: EKG 08/2024 Vent. Rate : 066 BPM Atrial Rate : 066 BPM P-R Int : 128 ms QRS Dur : 094 ms QT Int : 390 ms P-R-T Axes : 008 -17 043 degrees QTc Int : 408 ms Normal sinus rhythm Minimal voltage criteria for LVH, may be normal variant ( R in aVL ) Nonspecific ST and T wave abnormality Abnormal ECG When compared with ECG of 29-OCT-2016 13:24, No significant change was found Assessment and Plan Assessment Anesthesia Assessment: Chart Reviewed Final Anesthetic Review Family History of Problems with Anesthesia: Unobtainable (Adopted) History of Problems with Anesthesia: No (Sensitive to narcotics) Documented by User: Mary Cloud MD 12/07/24 10:02 [facility] Past Medical History Medical History History of foot drop Peripheral neuropathy Diabetes Depression Arthritis Barretts esophagus Peptic ulcer GERD (gastroesophageal reflux disease) Surgical History Surgical History Hx of hernia repair Hx of cardiac catheterization History of esophagogastroduodenoscopy (EGD) H/O colonoscopy Social History Social History Household Members: None Are you a primary career development coordinator/teacher to a significant other at home: No Do you presently have visiting nurse or other home services: No Alcohol intake: never Patient Tobacco Use Status: Never used Tobacco Use of substances other than those prescribed or required for medical reasons: No Are you DNR?: No Advance Directives: No Advance Directives Information Provided: Yes Nutrition Risks: No Nutritional Risk Poor oral hygiene: No Meds Allergies Allergy/AdvReac Type Severity Reaction Status Date / Time alprazolam [ALPRAZOLAM] Allergy Unknown PER H&P Verified 08/12/24 08:58 clonazepam [CLONAZEPAM] Allergy Unknown PER H&P Verified 08/12/24 08:58 metformin [METFORMIN] Allergy Unknown PER H&P Verified 08/12/24 08:58 metoprolol [METOPROLOL] Allergy Unknown PER H&P Verified 08/12/24 08:58 sertraline [SERTRALINE] Allergy Unknown PER H&P Verified 08/12/24 08:58 trazodone [TRAZODONE] Allergy Unknown PER H&P Verified 08/12/24 08:58 zolpidem [From AMBIEN] Allergy Unknown PER H&P Verified 08/12/24 08:58 narcotics Allergy Mild Hallucinati Uncoded 06/24/24 11:04 ons Home Medications ?Medication ?Instructions ?Recorded ?Confirmed ?Last Taken ?Type blood-glucose meter #1 ea 02/19/21 12/05/24 Unknown History diazepam 5 mg tablet 5 mg PO BEDTIME 02/19/21 12/05/24 12/06/24 History insulin lispro 100 unit/mL 7 unit subcut TIDAC 02/19/21 12/05/24 12/06/24 History subcutaneous pen insulin syr/ndl U100 half louis 0.3 #10 ea 02/19/21 12/05/24 Unknown History mL 31 gauge x 5/16 lancets 28 gauge #100 ea 02/19/21 12/05/24 Unknown History blood sugar diagnostic (Accu-Chek #10 ea 04/25/22 12/05/24 Unknown History Guide test strips) insulin glargine 100 unit/mL 18 unit subcut BEDTIME 04/25/22 12/05/24 12/06/24 History subcutaneous solution (Lantus U-100 Insulin) insulin syringe-needle U-100 0.3 #10 ea 04/25/22 12/05/24 Unknown History mL 31 gauge x 15/64 (BD Veo Insulin Syringe Ultra-Fine) sildenafil 100 mg tablet 100 mg PO DAILY PRN Erectile 04/25/22 12/05/24 Unknown History Dysfunction acetaminophen 500 mg tablet 500 mg PO QAM 07/17/22 12/05/24 12/06/24 History omeprazole 20 mg capsule,delayed 20 mg PO BID 09/07/23 12/05/24 12/06/24 History release acetaminophen 500 mg tablet 1,000 mg PO BEDTIME PRN Pain 09/01/24 12/05/24 12/06/24 History multivitamin 1 tab PO DAILY 09/01/24 12/05/24 12/06/24 History sucralfate 100 mg/mL oral 10 ml PO DAILY 09/01/24 12/05/24 12/06/24 History suspension Exam Airway Mallampati Class: II TM Dist: >3cm Neck ROM: Full Heart: rrr Lungs: cta Assessment and Plan Assessment Anesthesia Assessment: Anesthesia Plan Discussed Final Anesthetic Review NPO: Yes ASA Class: III Final Preanesthetic Review: No Changes in Pt Med Stat, Meds/Allgs Chart Reviewed, Consent Obtained/Reviewed and Anes Risks/Benef Reviewed Patient Risk: Intermediate Procedure Risk: Low Anesthetic Plan Anesthetic Plan: MAC: Disposition: Standard PACU
[2024-12-07 08:47] VITALS: BMI 26.2
[2024-12-07 09:00] VITALS: BP 134/72; PULSE 67; RESP 16; TEMP 36.7; O2SAT 96
[2024-12-07 09:09] LABS: Glucose, Whole Blood 103 mg/dL (60-115)
[2024-12-07] MEDS: Lactated Ringers 1,000 ML 100 ML IVCONT (09:14)
--- NOTE | 2024-12-07 09:52 | MHC.SHP ---
Pre-Procedural Eval Section A - 24 Hr Update-Section A only Date of Service: 12/07/24 Section B - Complete if H&P > 30 days Chief Complaint: gerd, Relevant Family History (Specify if Yes): No Relevant Social History: None Present Medications: see Short Stay Collaborative assessment Medical History: Significant History (Peripheral neuropathy COVID-19 vaccine administered History of COVID-19 Diabetes Depression Arthritis Barretts esophagus Peptic ulcer GERD (gastroesophageal reflux disease)) History of Previous Operations: Relevant previous surgery/procedure and date(s) (Hx of hernia repair Hx of cardiac catheterization History of esophagogastroduodenoscopy (EGD) H/O colonoscopy) Allergies: Allergies Allergy/AdvReac Type Severity Reaction Status Date / Time alprazolam [ALPRAZOLAM] Allergy Unknown PER H&P Verified 08/12/24 08:58 clonazepam [CLONAZEPAM] Allergy Unknown PER H&P Verified 08/12/24 08:58 metformin [METFORMIN] Allergy Unknown PER H&P Verified 08/12/24 08:58 metoprolol [METOPROLOL] Allergy Unknown PER H&P Verified 08/12/24 08:58 sertraline [SERTRALINE] Allergy Unknown PER H&P Verified 08/12/24 08:58 trazodone [TRAZODONE] Allergy Unknown PER H&P Verified 08/12/24 08:58 zolpidem [From AMBIEN] Allergy Unknown PER H&P Verified 08/12/24 08:58 narcotics Allergy Mild Hallucinati Uncoded 06/24/24 11:04 ons Review of Systems Sugical H&P ROS: Negative: Constitution, Cardiovascular, Respiratory, Neurological, Psychiatric, Hem-Onc, Allergic/Immunologic, Gastrointestinal, Genitourinary, Musculoskeletal, Integumentary, Endocrine and Eyes/Ears/Nose/Throat Exam Surgical H&P Exam: Normal: HEENT, Normal: Heart, Normal: Lungs, Normal: Extremities, Normal: Abdomen, Normal: Skin and Normal: Neurological Plan Diagnosis/Plan: Unchanged I have reviewed the history and physical and performed a pertinent physical examination on my patient. No changes have occurred unless specified. Time Spent With Patient Time: Total time managing care of this patient today ____ minutes.
--- NOTE | 2024-12-07 10:18 | P.OP_ITS ---
Operative Note Operative Note Date of Service: 12/07/24 Narrative: Procedure Description: EGD Indication: hx of barretts Anesthesia: MAC FLEXIBLE TRANSORAL UPPER GASTROINTESTINAL ENDOSCOPY UPPER ENDOSCOPY Consent: Indications for the procedure and potential complications of bleeding, perforation, reaction to medications and missed diagnosis were discussed with the patient and informed consent was obtained. Instrument: Olympus GIF H 190 J mid size upper endoscope Monitoring: Vital signs and clinical assessment, continuous EKG monitoring, Pulse oximetry, Carbon Dioxide monitoring and blood pressure monitoring were done throughout the procedure. Procedure: The patient was placed in the left lateral decubitis position and pre-procedure medications were administered and a bite block was placed. The endoscope was inserted into the mouth and advanced under direct vision to the third part of duodenum. A careful inspection was made as the upper endoscope was withdrawn including a retroflexed examination of the proximal stomach; Findings and interventions are described below. Findings: Larynx:normal Esophagus: GE junction at 33 cm, diaphragm hiatus at 35 cm, schatzki ring noted with irregular z line and possible short segment barretts, bx taken and brushings Stomach: patchy erythema . Biopsies were obtained. Grade 2 flap valve on retroflexed examination of the cardia. few small fundic gland polyps no meredith Duodenum: patchy erythema Intervention: Biopsies as noted above, Impression/Findings: gastritis duodenitis schatzki ring PLAN: cont with PPI GERD precautions
[2024-12-07 10:21] VITALS: BP 101/52; PULSE 68; RESP 16; TEMP 36.2; O2SAT 98
[2024-12-07 10:34] VITALS: BP 109/61; PULSE 75; RESP 16; TEMP 36.4; O2SAT 98
== END 2024-12-07 11:44 | disposition home or self-care (01) ==
PROVIDERS: PCP Family Medicine; Visit Provider Internal Medicine Gastroenterology
PROC: 0DJ08ZZ Inspection of Upper Intestinal Tract, Via Natural or Artificial Opening Endoscopic (ICD-10-PCS; CPT 43235; principal; 2024-12-07 10:00)
DX: K21.9 Gastro-esophageal reflux disease without esophagitis (principal); K22.2 Esophageal obstruction; K29.50 Unspecified chronic gastritis without bleeding; K44.9 Diaphragmatic hernia without obstruction or gangrene; Z87.19 Personal history of other diseases of the digestive system; Z87.11 Personal history of peptic ulcer disease; G62.9 Polyneuropathy, unspecified; K22.89 Other specified disease of esophagus; F32.A Depression, unspecified; E11.9 Type 2 diabetes mellitus without complications; Z79.4 Long term (current) use of insulin; Z79.899 Other long term (current) drug therapy; Z88.5 Allergy status to narcotic agent; Z88.8 Allergy status to other drugs, medicaments and biological substances; Z98.890 Other specified postprocedural states
CPT/HCPCS: 43239; 82947; 88305; 88313; 88342; J2003; J2704

== ENCOUNTER → 2024-12-07 08:19 | Outpatient (BNV) | payer BC, MEDICAID, SELFPAY | PROVIDERS: PCP Family Medicine; Visit Provider Internal Medicine Gastroenterology | DX: K21.9 Gastro-esophageal reflux disease without esophagitis (principal); K29.70 Gastritis, unspecified, without bleeding; K22.2 Esophageal obstruction; K31.7 Polyp of stomach and duodenum | CPT/HCPCS: 43239 ==

== ENCOUNTER 2024-12-19 13:36 | Outpatient (AMB) | payer BC, MEDICAID, SELFPAY ==
[2024-12-19 13:40] VITALS: BP 135/64; PULSE 81; BMI 26.3
--- NOTE | 2024-12-19 13:40 | MHC.OFFVIS ---
Vital Signs 12/19/24 13:40 Height 5 ft 9 in Weight 178 lb BMI 26.3 BP 135/64 Blood Pressure Location Lt brachial Position Sitting Pulse 81 Intake Visit Reasons: s/p egd Intake Note: Patient presents in office today in follow up s/p EGD. CC: Patient reports doing well today. Public Works Inspector Required: No Accompanied by: Self / Same As Patient Allergies alprazolam [ALPRAZOLAM] Allergy (Unknown, Verified 12/19/24 13:42) PER H&P clonazepam [CLONAZEPAM] Allergy (Unknown, Verified 12/19/24 13:42) PER H&P metformin [METFORMIN] Allergy (Unknown, Verified 12/19/24 13:42) PER H&P metoprolol [METOPROLOL] Allergy (Unknown, Verified 12/19/24 13:42) PER H&P sertraline [SERTRALINE] Allergy (Unknown, Verified 12/19/24 13:42) PER H&P trazodone [TRAZODONE] Allergy (Unknown, Verified 12/19/24 13:42) PER H&P zolpidem [From AMBIEN] Allergy (Unknown, Verified 12/19/24 13:42) PER H&P narcotics Allergy (Mild, Uncoded 06/24/24 11:04) Hallucinations HPI HPI s/p egd: Details: 64 yr old m here for f/u RECAP: Had originally seen Jamia Villaseñor main issues were barretts and diarrhea he was commenced on PPI, dexilant diarrhea with probiotic He was c/o upset stomach after eating, has postprandial stooling, watery d/c he has lots of gas he takes cheese with turkey, he doesn;t drink milk, takes diet coke 3 big cups daily he is already taking prilosec OTC 20 mg advised on diet, try to stop diet coke, pudding and avoid cheese, gradually reintroduce and assess response TESTS: u/s abdo--12/2018--normal GES- 02/2019-normal eGD/colonsocopy 08/2019--macias,s chronic esophagitis, tubular adenoma removed, random bx neg, melanosis coli rept egd 06/2020-- barretts, no dysplasia MRI: 02/2022- pancreas was normal EGD: 07/14-- barretts, with some inflammation--C1 M3, fundic gland polyp Colon: 12/16- polyp removed, poor prep, path: no adenoma tissue seen colon: 06/15- diverticulosis - 5 yr f/u EGD: 12/17- no barretts, WATS also neg TRIALS: he was given trial of rifaximin, unable to tolerate align was working well for him ppI INCREASED TO BID, changed to pantoprazole then dexilant due to diarrheal symptoms with PPI INTERIM: Reviewed EGD results, no issues, no nausea or vomiting appetite is good awaiting spinal surgery with Dr Rivers he is taking PPI--no problems EXAM: GENERAL: The patient is well developed and nontoxic. VITAL SIGNS:see workflow HEENT: Nonicteric sclerae, PERRLA, EOMI. Oropharynx clear. Moist mucous membranes. Conjunctivae appear well perfused. No thyroid mass. CHEST: Chest wall is nontender. HEART: Regular rate and rhythm without murmurs. LUNGS: Clear to auscultation bilaterally. ABDOMEN: Soft, positive bowel sounds, nontender, no organomegaly.no flank tenderness SKIN: No rash, no excessive bruising, petechiae, or purpura. NEUROLOGIC: Cranial nerves II-XII intact without motor/sensory deficit. psych--nml affect Assessments 1/ GERD, controlled clinically 2/ poor colon prep 3/ Barretts esophagus, no dysplasia--now regressed PLAN: 1/ cont with omeprazole daily 2/ repeat EGD 5 yrs or so f/u 8 months PFS Medical History History of foot drop Peripheral neuropathy Diabetes Depression Arthritis Barretts esophagus Peptic ulcer GERD (gastroesophageal reflux disease) Surgical History Hx of hernia repair Hx of cardiac catheterization History of esophagogastroduodenoscopy (EGD) H/O colonoscopy Social History Household Members: None Are you a primary care center manager to a significant other at home: No Do you presently have visiting nurse or other home services: No Alcohol intake: never Patient Tobacco Use Status: Never used Tobacco Physical Exam Vital Signs: Last Vital Signs Pulse 81 12/19/24 13:40 BP 135/64 12/19/24 13:40 BMI result Body Mass Index 26.3 Assessment & Plan Assessment & Plan (1) Chronic GERD: Code(s): K21.9 - Gastro-esophageal reflux disease without esophagitis Category: Medical Plan: see above Coding Level of Care Code Est Pt Level 3 (70869) Diagnoses Chronic GERD K21.9
--- OUTSIDE RECORDS SUMMARY | 2024-12-19 18:20 | XMS_ITS | Patient Health Record ---
[facility] Address [address] [place] [address] Care Team Providers Care Supply Clerk Name Role Phone South Duran MD Primary Care Provider Diana Tipton Unavailable [phone] Allergies Allergen (clinical drug ingredient) Drug/Non Drug Allergy documented on EMR Reaction Allergy Type Onset Date Status celecoxib Celebrex bad dreams Drug Allergy Inacti ve acetaminophen / oxycodone Percocet Unknown Drug Allergy Active Vicodin Unknown Drug Allergy Active alprazolam Alprazolam Unknown Drug Allergy Activ e clonazepam Clonazepam Unknown Drug Allergy Activ e metformin Metformin Unknown Drug Allergy Active naproxen Naproxen Unknown Drug Allergy Active sertraline Sertraline Unknown Drug Allergy Activ e trazodone Trazodone Unknown Drug Allergy Active Results Component Value Reference Range Notes X ray : Foot, left 2V Reviewed date:03/15/2024 05:34:28 PM Interpretation:See Examination above Performing Lab: Notes/Report: See Examination above X ray : Foot, right 2V Reviewed date:03/15/2024 05:34:39 PM Interpretation:See Examination above Performing Lab: Notes/Report: See Examination above HEMOGLOBIN A1C (GLYCOHEMOGLO BIN) Reviewed date:03/15/2024 01:03:07 PM Interpretation: Performing Lab: Notes/Report: HEMOGLOBIN A1C % (HH) 6.9 HEMOGLOBIN A1C (GLYCOHEMOGLO BIN) Reviewed date:09/20/2024 01:43:43 PM Interpretation: Performing Lab: Notes/Report: TOTAL HEMOGLOBIN (HGBA1C) 6 Reason For Referral Diagnosis 1 Type 1 diabetes tomy itus with diabetic polyneuropathy (E10.42) Diagnosis 2 Other hammer toe(s) (acquired), left foot (M20.42) Diagnosis 3 Other hammer toe(s) (acquired), right foot (M20.41) Referring Provider First Name South Referring Provider Last Name Renee Referred [facility] Ricardo Referred Provider Diana Rivera Referred Address [address],[place], [place],[address],[place] Referred Provider Specialty Podiatry Referral Priority Routine Medications Medication SIG (Take, Route, Frequency, Duration) Notes Start Date End Date Status Lantus Not-Taking HumaLOG Not-Taking Gabapentin 100 MG Orally No t-Taking Cefprozil Not-Taking Ciclopirox Olamine 0.77 % 1 application to affected area Externally Twice a day for 30 days 07/23/2017 Not-Taki ng Extra Depth Orthopedic Shoes (1 Pair) with Customized Heat Molded Multidensity Innersoles (3 Pair) as directed Dx: IDDM/Polyneuropathy (E10.42), Hammertoe Foot Deformity (M20.41,M20.42), Preulcerative Skin Lesion(s) (L85.1) 07/23/2017 Not-Taking Ranitidine Not-Takin g Ciclopirox Olamine 0.77% external Apply to effected areas twice a day for 30 days 03/12/2016 Not-Taking Lift Assist as directed for dx: Drop foot 04/12/2015 Not-Taking Ciclopirox Olamine 0.77% external Apply to effected areas twice a day for 30 days 03/07/2015 Not-Taking AFO-fixed . 1 . . for . 12/14/2013 Not-T aking diazePAM Active Insulin Glargine Act estephania Multivitamin - 1 tablet Orally Once a day Active Amitriptyline HCl No t-Taking Extra-Depth Diabetic Shoes with 3 Pair Custom heat-molded multi-density innersoles . for 1 year . Dx: for . 05/11/2014 Not-T aking AFO-fixed fixed 1 05/09/2014 Not -Taking AFO-fixed . 1 . Wear daily for . 03/15/2024 Active Tadalafil 20 MG TAKE ONE TABLET EVER Y 2 DAYS NEEDED Oral for 30 Days Active Sucralfate 1 GM/10ML TAKE 10 ML (1 G TOT AL) BY MOUTH 4 (FOUR) TIMES A DAY WITH MEALS AND NIGHTLY. Oral for 11 Days Active Omeprazole 20 MG 1 capsule Orally Onc e a day for 30 day(s) Active Diprolene Not-Taking Probiotic Active Iodosorb Not-Taking Insulin Lispro 02/22/2024 Acti ve Physical Therapy 3-4x per week for 3- 4 weeks 02/17/2014 Not-Taking Physical Therapy 3-4x per week for 3- 4 weeks Not-Taking Bactrim Not-Taking Immunizations Vaccine Route Administration Date Status Comme nts Influenza Unknown 09/04/2015 Administered Social History Tobacco use other than smoking: Question Answer Notes Are you an other tobacco user? No Problems Problem Type SNOMED Code ICD Code Onset Dates Problem Status W/U Status Risk Notes Problem Polyneuropathy due to diabetes mellitus type I (818225204) Type 1 diabetes mellitus with diabetic polyneuropathy (E10.42) Active confirmed Problem Polyneuropathy due to type 2 diabetes mellitus (030260907) Type 2 diabetes mellitus with diabetic polyneuropathy (E11.42) Active confirmed Problem Acquired hammer toe of right foot (0110081850389137 ) Other hammer toe(s) (acquired), right foot (M20.41) Active confirmed Problem Acquired hammer toe of left foot (1436264658243421 ) Other hammer toe(s) (acquired), left foot (M20.42) Active confirmed Problem 881621105 Hammer toe of right foot (M20.41) Active confirmed Problem 110932115 Hammer toe of left foot (M20.42) Active confirmed Vital Signs Height 5ft 9in in 09/20/2024 Weight 187 lbs 09/20/2024 BMI 27.61 kg/m2 09/20/2024 Procedures Procedure Date Ordered Date Performed Result Body Sit e 07789-EPMQOEZ NAIL, 6 OR MORE 03/15/2024 N/A 51625-FZAI SKIN LESIONS, OVER 4 03/15/2024 N/A 12641-TSSOYRP NAIL, 6 OR MORE 06/21/2024 N/A 11071-ZSCU SKIN LESIONS, OVER 4 06/21/2024 N/A 11311-BWJODLM NAIL, 6 OR MORE 09/20/2024 N/A 60996-DYTX SKIN LESIONS, OVER 4 09/20/2024 N/A Encounters Encounter Location Date Provider Diagnosis [address] [address] 03/15/2024 Diana Rivera Type 1 diabetes mellitus with diabetic polyneuropathy E10.42 ; Tinea unguium B35.1 ; Left foot drop M21.372 ; Hammer toe of right foot M20.41 ; Hammer toe of left foot M20.42 ; Toe pain, right M79.674 and Toe pain, left M79.[address] [address] 06/21/2024 Diana Rivera Type 1 diabetes mellitus with diabetic polyneuropathy E10.42 ; Tinea unguium B35.1 ; Left foot drop M21.372 ; Toe pain, right M79.674 and Toe pain, left M79.[address] [address] 09/20/2024 Diana Rivera Type 1 diabetes mellitus with diabetic polyneuropathy E10.42 and Tinea unguium B35.[address] [address] 02/22/2024 Diana Rivera [address] [address] 04/05/2024 Diana Rivera Assessments Encounter Date Diagnosis (ICD Code) Assessment Notes Treatment Notes Treatment Clinical Notes Section Notes 03/15/2024 Type 1 diabetes mellitus with diabetic polyneuropathy (ICD-10 - E10.42) 03/15/2024 Tinea unguium (ICD-10 - B35.1) 06/21/2024 Type 1 diabetes mellitus with diabetic polyneuropathy (ICD-10 - E10.42) 06/21/2024 Tinea unguium (ICD-10 - B35.1) 09/20/2024 Type 1 diabetes mellitus with diabetic polyneuropathy (ICD-10 - E10.42) 09/20/2024 Tinea unguium (ICD-10 - B35.1) 06/21/2024 Left foot drop (ICD-10 - M21.372) 03/15/2024 Left foot drop (ICD-10 - M21.372) 03/15/2024 Hammer toe of right foot (ICD-10 - M20.41) 06/21/2024 Toe pain, right (ICD-10 - M79.674) 06/21/2024 Toe pain, left (ICD-10 - M79.675) 03/15/2024 Hammer toe of left foot (ICD-10 - M20.42) 03/15/2024 Toe pain, right (ICD-10 - M79.674) 03/15/2024 Toe pain, left (ICD-10 - M79.675) Plan Of Treatment Pending Test Test Name Order Date X ray : Ankle, right 2V 10/12/2012 X ray : Foot, right 2V 10/12/2012 07133-TEDXLKT NAIL, 6 OR MORE 12/23/2012 38696-YMSBHHY NAIL, 6 OR MORE 02/09/2013 56051-PBBPBUY NAIL, 6 OR MORE 03/07/2013 38413-CNKUOEG NAIL, 6 OR MORE 04/14/2013 65954-WXWZLTG NAIL, 6 OR MORE 07/05/2013 14409-DOUDIGH NAIL, 6 OR MORE 09/16/2013 86346-TGEJCIA NAIL, 6 OR MORE 02/17/2014 30980-SMHXHPL NAIL, 6 OR MORE 03/15/2014 50736-VPSTSHR NAIL, 6 OR MORE 06/14/2014 79129-AOVYNXQ NAIL, 6 OR MORE 08/23/2014 24103-QLFXBLE NAIL, 6 OR MORE 03/07/2015 28940-POJVFJD NAIL, 6 OR MORE 06/13/2015 74315-TKBXPVU NAIL, 6 OR MORE 09/12/2015 97527-VJTNTXD NAIL, 6 OR MORE 01/09/2016 64763-UDPLUFB NAIL, 6 OR MORE 03/12/2016 33327-YGUKNGO NAIL, 6 OR MORE 05/14/2016 34419-NSJQITV NAIL, 6 OR MORE 07/23/2016 64292-RQMKLMY NAIL, 6 OR MORE 01/01/2017 55135-PAQHYWK NAIL, 6 OR MORE 04/02/2017 78290-FZJPBDH NAIL, 6 OR MORE 07/23/2017 60082-MYKDZQQ NAIL, 6 OR MORE 03/15/2024 56473-OIXTAMD NAIL, 6 OR MORE 06/21/2024 06205-HKCTUDG NAIL, 6 OR MORE 09/20/2024 32790-LFAPZSB NAIL, 1-5 12/14/2013 43454-Uemrifct Plate 02/09/2013 85151-Jdpddaxd Plate 03/07/2013 29598- Debride <25 sq cm 07/05/2013 83174- Debride <25 sq cm 06/07/2013 97699- Debride <25 sq cm 08/05/2013 94665- Debride <25 sq cm 09/16/2013 18749- Debride <25 sq cm 01/01/2017 15750- Debride <25 sq cm 07/23/2016 22533-OKGASGO SKIN/TISSUE 04/14/2013 46811-LDIYVOR SKIN/TISSUE 04/22/2013 99515-ALETVPP SKIN/TISSUE 05/06/2013 37683-HBUTWUK SKIN/TISSUE 05/20/2013 65254 I&D ABSCESS- SIMPLE,SINGLE 013 29243 I&D ABSCESS- SIMPLE,SINGLE 013 51614 I&D ABSCESS- SIMPLE,SINGLE 012 60077 I&D ABSCESS- SIMPLE,SINGLE 012 51253 I&D ABSCESS- SIMPLE,SINGLE 013 14184- I&D ABSCESS-COMPLICATED,MULTI 19177- I&D ABSCESS-COMPLICATED,MULTI 05912- I&D ABSCESS-COMPLICATED,MULTI 00750- I&D ABSCESS-COMPLICATED,MULTI 85966- I&D ABSCESS-COMPLICATED,MULTI 51, J0702- INJECT TENDON ORIGIN/INSER T 03/07/201395638, J0702- INJECT TENDON ORIGIN/INSER T 02/09/201383013, J0702- INJECT TENDON ORIGIN/INSER T 11/12/201264868, J0702- INJECT TENDON ORIGIN/INSER T 10/12/201255725, J0702- INJECT TENDON ORIGIN/INSER T 12/23/2012, J0702- INJECT or DRAIN, JOINT/BUR SA 12/23/2012, J0702- INJECT or DRAIN, JOINT/BUR SA 11/12/2012, J0702- INJECT or DRAIN, JOINT/BUR SA 10/12/2012, J0702- INJECT or DRAIN, JOINT/BUR SA 02/09/2013 13219-FAJJ SKIN LESIONS, OVER 4 03/07/20 15 11274-XLTZ SKIN LESIONS, OVER 4 04/02/20 17 77268-TIBU SKIN LESIONS, OVER 4 01/01/20 17 76345-OJLC SKIN LESIONS, OVER 4 07/23/20 16 48852-PDRL SKIN LESIONS, OVER 4 05/14/20 16 63645-PAJS SKIN LESIONS, OVER 4 03/12/20 16 04379-NXVJ SKIN LESIONS, OVER 4 01/09/20 16 11633-SFXL SKIN LESIONS, OVER 4 09/12/20 15 16983-EUAN SKIN LESIONS, OVER 4 09/20/20 24 26803-OIVJ SKIN LESIONS, OVER 4 06/21/20 24 70305-CMNA SKIN LESIONS, OVER 4 03/15/20 24 85642-LURD SKIN LESIONS, OVER 4 07/23/20 17 12921-RSRW SKIN LESIONS, 2 TO 4 06/13/20 15 32450-BGMA SKIN LESIONS, 2 TO 4 08/23/20 14 45738-SPQJ SKIN LESIONS, 2 TO 4 06/14/20 14 18707-AQXO SKIN LESIONS, 2 TO 4 09/16/20 13 72413-OOWH SKIN LESIONS, 2 TO 4 07/05/20 13 83024-UTMT SKIN LESION 02/09/2013 82841-KGWM SKIN LESION 03/07/2013 44762-KCLC SKIN LESION 10/12/2012 22037-XYMH SKIN LESION 11/12/2012 49007-EYVC SKIN LESION 12/23/2012 19496- Removal of Foreign Body, Subcut 0 01/01/2017 40117- Removal of Foreign Body, Subcut 0 07/23/2016 43373, J0702- Neuroma/Injection 09/16/20 13 50201, J0702- Neuroma/Injection 03/15/20 14 Next Appt Details Provider Name:Diana Rivera , 02/28/2025 01:00:00 PM, [address] [facility], [place], [address], Insurance Providers Payer Name Payer Address Payer Phone Subscriber Number Group Number Insured Name Patient Relationship to Insured Coverage Start Date Coverage End Date [facility] [address] [place] [address] [phone] [id number] Jamarcus Coates Self - patient is the insured Medical (General) History Medical History History ICD Code anxiety Arthritis back, hip, knee pain depression diabetic Gout high blood pressure neuropathy poor circulation psoriasis psychiatric disorder reflux sciatica warts Surgical History Surgery Date(Month/Year) hernia colonoscopy 11/2013 Hospitalization History Reason Date(Month/Year) [facility] [place] for stomach issues 09/2016-10/2016
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
--- OUTSIDE RECORDS SUMMARY | 2024-12-19 18:20 | XMS_ITS ---
Author Organization [facility] Address [address] [facility] [place] [address] Care Team Providers Care Business Services Officer Name Role Phone South Duran MD Primary Care Provider Diana Tipton Unavailable [phone] Allergies Allergen (clinical drug ingredient) Drug/Non Drug [...] e trazodone Trazodone Unknown Drug Allergy Active REASON FOR VISIT At Risk Footcare Medications Medication SIG (Take, Route, Frequency, Duration) Notes Start Date End Date Status Extra-Depth Diabetic Shoes with 3 Pair Custom heat-molded multi-density innersoles . for 1 year . Dx: for . 05/11/2014 Not-T aking Ciclopirox Olamine 0.77% external Apply to effected areas twice a day for 30 days 03/07/2015 Not-Taking AFO-fixed . 1 . . for . 12/14/2013 Not-T aking Lantus Not-Taking HumaLOG Not-Taking AFO-fixed fixed 1 05/09/2014 Not -Taking AFO-fixed [...] e a day for 30 day(s) Active Probiotic Active Insulin Lispro 02/22/2024 Acti ve diazePAM Active Insulin Glargine Act estephania Multivitamin - 1 tablet Orally Once a day Active Diprolene Not-Taking Iodosorb Not-Taking Physical Therapy 3-4x per week for 3- 4 weeks 02/17/2014 Not-Taking Physical Therapy 3-4x per week for 3- 4 weeks Not-Taking Bactrim Not-Taking Gabapentin 100 MG Orally No t-Taking Cefprozil Not-Taking Ciclopirox Olamine 0.77 % 1 application to affected area Externally Twice a day for 30 days 07/23/2017 Not-Taki ng Extra Depth Orthopedic Shoes (1 Pair) with Customized Heat Molded Multidensity Innersoles (3 Pair) as directed Dx: IDDM/Polyneuropathy (E10.42), Hammertoe Foot Deformity (M20.41,M20.42), Preulcerative Skin Lesion(s) (L85.1) 07/23/2017 Not-Taking Amitriptyline HCl No t-Taking Ranitidine Not-Takin g Ciclopirox Olamine 0.77% external Apply to effected areas twice a day for 30 days 03/12/2016 Not-Taking Lift Assist as directed for dx: Drop foot 04/12/2015 Not-Taking Social History Tobacco use other than smoking: Question Answer Notes Are you an other tobacco user? No Vital Signs Height 5ft 9in in 09/20/2024 Weight 187 lbs 09/20/2024 BMI 27.61 kg/m2 09/20/2024 Procedures Procedure Date Ordered Date Performed Result Body Sit e 95556-MOJZWNH NAIL, 6 OR MORE 09/20/2024 N/A 00172-ZZSI SKIN LESIONS, OVER 4 09/20/2024 N/A Encounters Encounter Location Date Provider Diagnosis [facility] [address] [address] 09/20/2024 Diana Black Type 1 diabetes tomy itus with diabetic polyneuropathy E10.42 and Tinea unguium B35.1 Assessments Encounter Date Diagnosis (ICD Code) Assessment Notes Treatment Notes Treatment Clinical Notes Section Notes 09/20/2024 Type 1 diabetes mellitus with diabetic polyneuropathy (ICD-10 - E10.42) 09/20/2024 Tinea unguium (ICD-10 - B35.1) Plan Of Treatment Pending Test Test Name Order Date 84144-VNUMHML NAIL, 6 OR MORE 09/20/2024 71068-IDCY SKIN LESIONS, OVER 4 09/20/20 24 Next Appt Details Follow Up: prn, Reason: Provider Name:Diana Rivera , 02/28/2025 01:00:00 PM, [address] [facility], [place], [address], Procedure Notes * Category Sub-Category Detail Notes Debride Nail 6-10 Nail debridement Performance o f this nail treatment by a nonprofessional would put this patients foot and overall health at risk. Therefore, nail debridement was performed extensively to reduce/remove overall nail length, girth, thickness, subungual debris, and necrotic tissue, by manual and/or electrical means through the use of a nail nipper and/or dremel-type grinder dresser, to a more viable healthy nail plate or bed tissue 6-10. Silver nitrate used for any petechial bleeding as necessary. Definitive antifungal treatment options have been reviewed and discussed with the patient. The patient chooses, no pharmaceutical tx - 71564 Keratoma Treatment Parring or Cutting o f Benign Hyperkeratotic Lesion(s) 59707 ( More than 4 Lesions ) - The Benign hyperkeratotic lesions, as described above were pared, and/or cut utilizing a sterile 15 blade, tissue nippers, and/or dremel, Progress Notes * Jamarcus COATES FDOB:1960 ( 64 yo M)Acc No.[id number]:09/20/2024 Progress Note Patient:?Jamarcus Coates Provider:?Diana Rivera DPM :1960???Age:64 Y???Sex:Male Subhash e:09/20/2024 Address:[address] [place], [place] [address] [facility] Pcp:South Duran MD Subjective: * Chief Complaints: * ???At Risk Footcare * HPI: ???At Risk footcare:?Pt States Last PCP Visit:?Date?09/13/2024 * Medical History:? * Surgical History:?hernia col onoscopy 11/2013 * [place]ization[place]Major Diagno stic [place] [place] * Family History:?Mother: dece ased, diagnosed with Other malignant neoplasm of unspecified site.?Father: .? Patient is adopted. * Social History:?Tobacco Use:?Tobacco Use/Smoking?Are you a:: nonsmoker , Additional Findings: Tobacco Non-User: Current non-smoker.?Tobacco use other than smoking?Are you an other tobacco user??No ???Drugs/Alcohol:?Drugs?Have you used drugs other than those for medical reasons in the past 12 months??No ?Alcohol Screen?Did you have a drink containing alcohol in the past year?: No, Points: 0, Interpretation: Negative.?Miscellaneous:?Caffeine: yes, 2-3 cups per day. ?no Children. ?Exercise: bike riding, exercise, gym. ?Marital status: single. 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 * Medications:?TakingMultivita min - Tablet 1 tablet Orally Once a dayInsulin Glargine diazePAM Insulin Lispro Probiotic Omeprazole 20 MG Capsule Delayed Release 1 capsule Orally Once a daySucralfate 1 GM/10ML Suspension TAKE 10 ML (1 G TOTAL) BY MOUTH 4 (FOUR) TIMES A DAY WITH MEALS AND NIGHTLY. Oral Tadalafil 20 MG Tablet TAKE ONE TABLET EVERY 2 DAYS NEEDED Oral AFO-fixed . Ankle-Foot Orthotic 1 . Wear dailyTaking Multivitamin - Tablet 1 tablet Orally Once a dayTaking Insulin Glargine Taking diazePAM Taking Insulin Lispro Taking Probiotic Taking Omeprazole 20 MG Capsule Delayed Release 1 capsule Orally Once a dayTaking Sucralfate 1 GM/10ML Suspension TAKE 10 ML (1 G TOTAL) BY MOUTH 4 (FOUR) TIMES A DAY WITH MEALS AND NIGHTLY. Oral Taking Tadalafil 20 MG Tablet TAKE ONE TABLET EVERY 2 DAYS NEEDED Oral Taking AFO-fixed . Ankle-Foot Orthotic 1 . Wear dailyNot-Taking/PRNAFO-fixed fixed orthotic 1 Extra-Depth Diabetic Shoes with 3 Pair Custom heat-molded multi-density innersoles . . for 1 year . Dx:HumaLOG Lantus AFO-fixed . Peromax-graphite 1 . .Ciclopirox Olamine 0.77% Cream external Apply to effected areas twice a dayLift Assist as directed Ciclopirox Olamine 0.77% Cream external Apply to effected areas twice a dayRanitidine Extra Depth Orthopedic Shoes (1 Pair) with Customized Heat Molded Multidensity Innersoles (3 Pair) as directed Dx: IDDM/Polyneuropathy (E10.42), Hammertoe Foot Deformity (M20.41,M20.42), Preulcerative Skin Lesion(s) (L85.1)Ciclopirox Olamine 0.77 % Cream 1 application to affected area Externally Twice a dayCefprozil Gabapentin 100 MG Capsule Orally Amitriptyline HCl Bactrim Physical Therapy 3-4x per week for 3-4 weeks Physical Therapy 3-4x per week for 3-4 weeks Iodosorb Diprolene Medication List reviewed and reconciled with the patientNot-Taking/PRN AFO-fixed fixed orthotic 1 Not-Taking/PRN Extra-Depth Diabetic Shoes with 3 Pair Custom heat-molded multi-density innersoles . . for 1 year . Dx:Not-Taking/PRN HumaLOG Not-Taking/PRN Lantus Not-Taking/PRN AFO-fixed . Peromax-graphite 1 . .Not-Taking/PRN Ciclopirox Olamine 0.77% Cream external Apply to effected areas twice a dayNot-Taking/PRN Lift Assist as directed Not-Taking/PRN Ciclopirox Olamine 0.77% Cream external Apply to effected areas twice a dayNot-Taking/PRN Ranitidine Not-Taking/PRN Extra Depth Orthopedic Shoes (1 Pair) with Customized Heat Molded Multidensity Innersoles (3 Pair) as directed Dx: IDDM/Polyneuropathy (E10.42), Hammertoe Foot Deformity (M20.41,M20.42), Preulcerative Skin Lesion(s) (L85.1)Not-Taking/PRN Ciclopirox Olamine 0.77 % Cream 1 application to affected area Externally Twice a dayNot-Taking/PRN Cefprozil Not-Taking/PRN Gabapentin 100 MG Capsule Orally Not-Taking/PRN Amitriptyline HCl Not-Taking/PRN Bactrim Not-Taking/PRN Physical Therapy 3-4x per week for 3-4 weeks Not- Taking/PRN Physical Therapy 3-4x per week for 3-4 weeks Not-Taking/PRN Iodosorb Not- Taking/PRN Diprolene Medication List reviewed and reconciled with the patient * Allergies:?AlprazolamTrazodoneSertralineMetforminVicodinPercocetClonazepamNaprox enyes[Allergies Verified] Objective: * Vitals:?Ht:5ft 9in, Wt:187, BMI:27.61, Shoe size:12, BS:200, Ht-cm: 175.26 cm, Wt-k.82 kg. * ???Past Orders: ???Lab:HEMOGLOBIN A1C (GLYCO HEMOGLOBIN) (Order Date - 09/13/2024) (Collection Date - 09/13/2024) ? Value Reference Range ?TOTAL HEMOGLOBIN (HGBA1C) 6 * Examination: ???Ophthalmology Referral: ?DIABETES EYE EXAM?Vascular: ?DP PULSES(B):?2/4, B/L.?PT PULSES(B):?2/4, B/L.?Nails: ?NAILS are:?elongated, overgrown, dystrophic, greater than 3mm thick, discolored and friable with crumbly malodorous subungual debris, with dull to no pain on palpation due to neuropathy T2, T3, T9, T7, T6, ?T1.?Dermatologic: ?SKIN FINDINGS:?Skin exam reveals Keratotic lesion(s) located at, TA, T5 Medial, Plantar, , SUB MTH (s), 1, B/L , SUB MTH (s), 5, Right , ,.?Neurological: ?SENSORY:?Neurological exam demonstrates, reduced sharp/dull discrimination , reduced vibration sensation, reduced proprioception sensation, 5.07 monofilament test performed at plantar aspects of 5 varied sites per foot shows sensation, reduced, B/L, Pt relates increased burning, anesthesia, pins and needles sensation.? Assessment: * Assessment: 1.?Type 1 diabetes mellitus with diabetic polyneuropathy - E10.42?2.?Tinea unguium - B35.1? Plan: * Treatment: 2.?Tinea unguium?Procedure: 45645-GYSOOZZ NAIL, 6 OR MORE * Procedures:?Debride Nail 6-10:?Nail debridement?Performance of this nail treatment by a nonprofessional would put this patients foot and overall health at risk. Therefore, nail debridement was performed extensively to reduce/remove overall nail length, girth, thickness, subungual debris, and necrotic tissue, by manual and/or electrical means through the use of a nail nipper and/or dremel-type grinder dresser, to a more viable healthy nail plate or bed tissue 6-10. Silver nitrate used for any petechial bleeding as necessary. Definitive antifungal treatment options have been reviewed and discussed with the patient. The patient chooses, no pharmaceutical tx - 70561.?Keratoma Treatment:?Parring or Cutting of Benign Hyperkeratotic Lesion(s)?51415 ( More than 4 Lesions ) - The Benign hyperkeratotic lesions, as described above were pared, and/or cut utilizing a sterile 15 blade, tissue nippers, and/or dremel, ?.? * Procedure Codes:?67349 DEBRI DE NAIL, 6 OR MORE, Modifiers: XS 03313 TRIM SKIN LESIONS, OVER 4, Modifiers: XS * Follow Up:?prn * Images: * Sign off status: Completed true * Provider:?SARAH SandovalM Date:?2023 Generated for Matt otoole/Karin/Anaitting on:?12/19/2024 06:20 PM EST History and Physical Notes * HPI (History of Present Illness) Category Sub-Category Detail Notes Category Not es At Risk footcare Pt States Last PCP Visit: Date: 4 Examination Category Sub-Category Detail Notes Category Not es Neurological SENSORY: Neurological exa m demonstrates, reduced sharp/dull discrimination , reduced vibration sensation, reduced proprioception sensation, 5.07 monofilament test performed at plantar aspects of 5 varied sites per foot shows sensation, reduced, B/L, Pt relates increased burning, anesthesia, pins and needles sensation Dermatologic SKIN FINDINGS: Skin exam reveal s Keratotic lesion(s) located at, TA, T5 Medial, Plantar, , SUB MTH (s), 1, B/L , SUB MTH (s), 5, Right , , Orthopedic FOOTWEAR: Ophthalmology Referral DIABETES EYE EXAM Diabeti c Retinopathy Screening:: Yes 03/2024 Vascular DP PULSES (B): 2/4, B/L PT PULSES (B): 2/4, B/L Nails NAILS are: elongated, overg rown, dystrophic, greater than 3mm thick, discolored and friable with crumbly malodorous subungual debris, with dull to no pain on palpation due to neuropathy T2, T3, T9, T7, T6, T1
--- OUTSIDE RECORDS SUMMARY | 2024-12-19 18:20 | XMS_ITS ---
Author Organization [facility] Address [address] [place] [address] Care Team Providers Care Physiology Teacher Name Role Phone South Duran MD Primary Care Provider Diana Tipton [phone] REASON FOR VISIT Shoe RX Encounters Encounter Location Date Provider Diagnosis [facility] [address] [place] [address] 04/05/2024 Diana Rivera Plan Of Treatment Next Appt Details Provider Name:Diana Rivera , 02/28/2025 01:00:00 PM, [address] [facility], [place], [place], [address], Progress Notes * Jamarcus COATES FDOB:1960 ( 64 yo M)Acc No.[id number]:04/05/2024 Patient:?Jamarcus Coates :1960???Age:64 Y???Sex:Male [address] [place], [address] * true * Date:? Generated for Printi ng/Faamirahg/eTransmitting on:?12/19/2024 06:20 PM EST
--- OUTSIDE RECORDS SUMMARY | 2024-12-19 18:20 | XMS_ITS ---
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 1 . . for . 12/14/2013 Not-T aking Extra-Depth Diabetic Shoes with 3 Pair Custom heat-molded multi-density innersoles . for 1 year . Dx: for . 05/11/2014 Not-T aking AFO-fixed fixed 1 05/09/2014 Not -Taking Lantus Not-Taking HumaLOG Not-Taking AFO-fixed . 1 . Wear daily for [...] day for 30 day(s) Active Probiotic Active Diprolene Not-Taking Insulin Lispro 02/22/2024 Acti ve diazePAM Active Insulin Glargine Act estephania Multivitamin - 1 tablet Orally Once a day Active Physical Therapy 3-4x per week for 3- 4 weeks 02/17/2014 Not-Taking Physical Therapy 3-4x per week for 3- 4 weeks Not-Taking Iodosorb Not-Taking Bactrim Not-Taking Amitriptyline HCl No t-Taking Ranitidine Not-Takin g Ciclopirox Olamine 0.77 % 1 application to affected area Externally Twice a day for 30 days 07/23/2017 Not-Taki ng Extra Depth Orthopedic Shoes (1 Pair) with Customized Heat Molded Multidensity Innersoles (3 Pair) as directed Dx: IDDM/Polyneuropathy (E10.42), Hammertoe Foot Deformity (M20.41,M20.42), Preulcerative Skin Lesion(s) (L85.1) 07/23/2017 Not-Taking Gabapentin 100 MG Orally No t-Taking Cefprozil Not-Taking Ciclopirox Olamine 0.77% external Apply to effected areas twice a day for 30 days 03/07/2015 Not-Taking Ciclopirox Olamine 0.77% external Apply to effected areas twice a day for 30 days 03/12/2016 Not-Taking Lift Assist as directed for dx: Drop foot 04/12/2015 Not-Taking Social History Tobacco use other than smoking: Question Answer Notes Are you an other tobacco user? No Vital Signs Height 5 ft 9 in in 06/21/2024 Weight 180 lbs 06/21/2024 BMI 26.58 kg/m2 06/21/2024 Procedures Procedure Date Ordered Date Performed Result Body Sit e 64544-QNLHEFE NAIL, 6 OR MORE 06/21/2024 N/A 39056-CHMX SKIN LESIONS, OVER 4 06/21/2024 N/A Encounters Encounter Location Date Provider Diagnosis [facility] [place] [address] [place] [address] 06/21/2024 Diana Black Type 1 diabetes tomy itus with diabetic polyneuropathy E10.42 ; Tinea unguium B35.1 ; Left foot drop M21.372 ; Toe pain, right M79.674 and Toe pain, left M79.675 Assessments Encounter Date Diagnosis (ICD Code) Assessment Notes Treatment Notes Treatment Clinical Notes Section Notes 06/21/2024 Type 1 diabetes mellitus with diabetic polyneuropathy (ICD-10 - E10.42) 06/21/2024 Tinea unguium (ICD-10 - B35.1) 06/21/2024 Left foot drop (ICD-10 - M21.372) 06/21/2024 Toe pain, right (ICD-10 - M79.674) 06/21/2024 Toe pain, left (ICD-10 - M79.675) Plan Of Treatment Pending Test Test Name Order Date 35711-GGDXVAT NAIL, 6 OR MORE 06/21/2024 54573-PTCW SKIN LESIONS, OVER 4 06/21/20 24 Next Appt Details Follow Up: prn, Reason: Provider Name:Diana Rivera , 02/28/2025 01:00:00 PM, [address] [facility], [place], [address], Procedure Notes * Category Sub-Category Detail Notes Debride Nail 6-10 Nail debridement Nail debridem ent performed extensively to reduce/remove overall nail length, girth, thickness, subungual debris, and necrotic tissue, by manual and electrical means through the use of a nail nipper and/or dremel, to more viable healthy nail plate or bed tissue 1-5. Silver nitrate used for any petechial bleeding as necessary. Patient chooses, no pharmaceutical tx (27040) Keratoma Treatment Parring or Cutting o f Benign Hyperkeratotic Lesion(s) 63440 ( More than 4 Lesions ) - The Benign hyperkeratotic lesions, as described above were pared, and/or cut utilizing a sterile 15 blade, tissue nippers, and/or dremel, Progress Notes * Jamarcus COATES FDOB:1960 ( 64 yo M)Acc No.[id number]:06/21/2024 Progress Note Patient:?Jamarcus COATES Provider:?Diana Rivera DPM :1960???Age:64 Y???Sex:Male Subhash e:06/21/2024 Address:[address] [place], [id number] Pcp:South Duran MD Subjective: * Chief Complaints: * ???At Risk FootcareFoot pain * HPI: ???At Risk footcare:?Pt States Last PCP Visit:?Date?03/14/2024 ???Foot Pain:?Nature:?numbness,drop foot.?Location:?LEFT.?Duration:?several years.?Onset:?denies trauma.?Treatments:?custom orthotics which pt presented with today , AFO fixed brace?.?Misc:?pt relates a more stable gait.? * ROS:?General/Constitutional:?Nausea?denies.?Vomiting?denies.?Hunger Thirst?denies.?Loss appetite?denies.?Chills?denies.?Fatigue?denies.?Fever?denies.?Night Sweats?denies.?Unexplained weight loss?denies.?Unexplained weight gain?denies.?HEENTM:?Dentures?denies.?Dizziness?denies.?Glasses/contacts?denies.?Retinopathy?den ies.?Blurred/double vision?denies.?TMJ?denies.?Discharge/drainage?denies.?Implants?denies.?Sore throat?denies.?Dental implants?denies.?Hard of hearing ?denies.?Difficulty chewing/swallowing/speaking?denies.?Nose bleeds?denies.?Sore mouth?denies.?Respiratory:?On O xygen?denies.?Pneumonia/pleurisy?denies.?Bronchitis?denies.?Emphysema?denies.?Co ughing?denies.?Cough blood?denies.?Shortness of breath?denies.?Wheezing?denies.?Cardiovascular:?Pacemaker?denies.?MVP?denies.?WPW?denies.?CHF?denies.?Heart attack?denies.?Septal defect?denies.?Rapid beat?denies.?Chest pain ?denies.?Atrial Fib.?denies.?Murmur/Palpitations?denies.?Gastrointestinal:?Hemorrhoids?denies.?Stomach/Abdominal pain?denies.?Dark blood stool?denies.?Irritable bowel ?denies.?Constipation?denies.?Diarrhea?denies.?Hematology:?Swelling?denies.?Clots?denies.?Varicose Veins?denies.?Bruising?denies.?Bleeding problem?denies.?Genitourinary:?Blood urine?denies.?Frequent/Painfu/urination/bladder control?denies.?Kidney stones?denies.?Infection (UTI)?denies.?Nephropathy?denies.?sex trans dis (STD)?denies.?Prostate?denies.?Musculoskeletal:?Hammertoes?denies.?Bunions?denies.?Back Pain?denies.?Muscle Cramps/ Resting?denies.?Muscle cramps / walking?admits.?Generalized aches and pains?denies.?Weakness?admits.?Integ.:?Mcnally?denies.?Scars?denies.?Corns/calluses?denies.?Ingrown nails?denies.?Painful nails?denies.?Open Sores?denies.?Rashes?denies.?Neurologic:?Difficulty sleeping?denies.?Brain disorder?denies.?Numbness?admits.?Balance t rouble?admits.?Confusion?denies.?Fainting/blackouts?denies.?Tingling?denies.?Leroy mors?denies.? * Medical History:? * Surgical History:?hernia col onoscopy 11/2013 * Hospitalization/Major Diagno stic Procedure:?[facility] [place] for stomach issues 09/2016- 10/2016 * Family History:?Mother: dece ased, diagnosed with [...] Interpretation: Negative.?Miscellaneous:?Caffeine: yes, 2-3 cups per day. ?Children: no. ?Exercise: bike riding, exercise, gym. ?Marital status: single. 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 * Medications:?TakingMultivita min - Tablet 1 tablet Orally Once a day Insulin Glargine diazePAM Insulin Lispro Probiotic Omeprazole 20 MG Capsule Delayed Release 1 capsule Orally Once a day Sucralfate 1 GM/10ML Suspension TAKE 10 ML (1 G TOTAL) BY MOUTH 4 (FOUR) TIMES A DAY WITH MEALS AND NIGHTLY. Oral Tadalafil 20 MG Tablet TAKE ONE TABLET EVERY 2 DAYS NEEDED Oral AFO-fixed . Ankle-Foot Orthotic 1 . Wear daily Taking Multivitamin - Tablet 1 tablet Orally Once a day Taking Insulin Glargine Taking diazePAM Taking Insulin Lispro Taking Probiotic Taking Omeprazole 20 MG Capsule Delayed Release 1 capsule Orally Once a day Taking Sucralfate 1 GM/10ML Suspension TAKE 10 ML (1 G TOTAL) BY MOUTH 4 (FOUR) TIMES A DAY WITH MEALS AND NIGHTLY. Oral Taking Tadalafil 20 MG Tablet TAKE ONE TABLET EVERY 2 DAYS NEEDED Oral Taking AFO-fixed . Ankle-Foot Orthotic 1 . Wear daily Not-Taking/PRNAFO-fixed fixed orthotic 1 Extra-Depth Diabetic Shoes with 3 Pair Custom heat-molded multi-density innersoles . . for 1 year . Dx: HumaLOG Lantus AFO-fixed . Peromax-graphite 1 . . Ciclopirox Olamine 0.77% Cream external Apply to effected areas twice a day Lift Assist as directed Ciclopirox Olamine 0.77% Cream external Apply to effected areas twice a day Ranitidine Extra Depth Orthopedic Shoes (1 Pair) with Customized Heat Molded Multidensity Innersoles (3 Pair) as directed Dx: IDDM/Polyneuropathy (E10.42), Hammertoe Foot Deformity (M20.41,M20.42), Preulcerative Skin Lesion(s) (L85.1) Ciclopirox Olamine 0.77 % Cream 1 application to affected area Externally Twice a day Cefprozil Gabapentin 100 MG Capsule Orally Amitriptyline HCl Bactrim Physical Therapy 3-4x per week for 3-4 weeks Physical Therapy 3-4x per week for 3-4 weeks Iodosorb Diprolene Medication List reviewed and reconciled with the patientNot-Taking/PRN AFO-fixed fixed orthotic 1 Not-Taking/PRN Extra-Depth Diabetic Shoes with 3 Pair Custom heat-molded multi-density innersoles . . for 1 year . Dx: Not-Taking/PRN HumaLOG Not-Taking/PRN Lantus Not-Taking/PRN AFO-fixed . Peromax-graphite 1 . . Not-Taking/PRN Ciclopirox Olamine 0.77% Cream external Apply to effected areas twice a day Not-Taking/PRN Lift Assist as directed Not- Taking/PRN Ciclopirox Olamine 0.77% Cream external Apply to effected areas twice a day Not-Taking/PRN Ranitidine Not-Taking/PRN Extra Depth Orthopedic Shoes (1 Pair) with Customized Heat Molded Multidensity Innersoles (3 Pair) as directed Dx: IDDM/Polyneuropathy (E10.42), Hammertoe Foot Deformity (M20.41,M20.42), Preulcerative Skin Lesion(s) (L85.1) Not-Taking/PRN Ciclopirox Olamine 0.77 % Cream 1 application to affected area Externally Twice a day Not-Taking/PRN Cefprozil Not-Taking/PRN Gabapentin 100 MG Capsule Orally Not-Taking/PRN Amitriptyline HCl Not-Taking/PRN Bactrim Not-Taking/PRN Physical Therapy 3-4x per week for 3-4 weeks Not- Taking/PRN Physical Therapy 3-4x per week for 3-4 weeks Not-Taking/PRN Iodosorb Not- Taking/PRN Diprolene Medication List reviewed and reconciled with the patient * Allergies:?AlprazolamTrazodoneSertralineMetforminVicodinPercocetClonazepamNaprox enyes[Allergies Verified] Objective: * Vitals:?Ht: 5 ft 9 in, Wt: 1 80, BMI:26.58, Shoe size: 12, BS: 110. * ???Past Orders: ???Lab:HEMOGLOBIN A1C (GLYCO HEMOGLOBIN) (Order Date - 03/15/2024) (Collection Date & Time - 03/15/2024 01:02 PM) ? Value Reference Range ?HEMOGLOBIN A1C % (HH) 6.9 * Examination: ???Ophthalmology Referral: ?DIABETES EYE EXAM?General Examination: ?GENERAL APPEARANCE:?Reveals a pleasant, alert, well nourished, well developed, well hydrated individual, who demonstrates proper attention to hygene/body habitus, and is in no acute distress.?ORIENTED:?person, place, and time.?FOOT EXAM:?Vascular: ?DP PULSES (B):?2/4, B/L.?PT PULSES (B):?2/4, B/L.?Nails: ?NAILS are:?elongated, overgrown, dystrophic, greater than 3mm thick, discolored and friable with crumbly malodorous subungual debris, with dull to no pain on palpation due to neuropathy T2, T3, T9, T7, T6, ?T1.?Orthopedic: ?MUSCLE STRENGTH:?Generalized decrease in strength, B/L , Dropfoot, Left-.?GAIT ABNORMALITY:?stable/steady with AFO no hx of recent falls.?DIGITAL DEFORMITIES:?Digital contracture, PIPJ, 2-5 B/L, incompl-reducable to push-up test, no over, nor underlapping.?FOOTWEAR:?, good condition, exhibit proper fit and accommodation for pedal deformities. OT were inspected and noted to be in good condition giving proper support at the present time.?Dermatologic: ?SKIN FINDINGS:?Skin exam reveals Keratotic lesion(s) located [...] 1 diabetes mellitus with diabetic polyneuropathy - E10.42???2.?Tinea unguium - B35.1???3.?Left foot drop - M21.372???4.?Toe pain, right - M79.674???5.?Toe pain, left - M79.675??? Plan: * Treatment: 2.?Tinea unguium?Procedure: 90206-UISDZQT NAIL, 6 OR MORE * Procedures:?Debride Nail 6-10:?Nail debridement?Nail debridement performed extensively to reduce/remove overall nail length, girth, thickness, subungual debris, and necrotic tissue, by manual and electrical means through the use of a nail nipper and/or dremel, to more viable healthy nail plate or bed tissue 1-5. Silver nitrate used for any petechial bleeding as necessary. Patient chooses, no pharmaceutical tx (29276).?Keratoma Treatment:?Parring or Cutting of Benign Hyperkeratotic Lesion(s)?17480 ( More than 4 Lesions ) - The Benign hyperkeratotic lesions, as described above were pared, and/or cut utilizing a sterile 15 blade, tissue nippers, and/or dremel, .? * Procedure Codes:?78217 DEBRI DE NAIL, 6 OR MORE, Modifiers: XS 62344 TRIM SKIN LESIONS, OVER 4, Modifiers: XS * Preventive Medicine:? ??Counseling:?Discussion:?-13: Office or other outpatient visit for the evaluation and management of an established patient, which required a medically appropriate history and/or examination and LOW level of DECISION MAKING for: 1 STABLE ACUTE UNCOMPLICATED PROBLEM, 2 OR MORE MINOR PROBLEMS, OR 1 STABLE CHRONIC PROBLEM, THAT POSE(S) A LOW RISK FOR MORBIDITY/MORTALITY. The visit on the day of the encounter encompassed interpreting the data and educating the patient as to the nature of their condition, treatment options available according to their individual PMH, meds, allergies, and overall health/living conditions, as well as any potential risks or complications that may occur from a failure to adhere to, and participate in, the recommended course of therapy. The discussion included a complete verbal, and/or written explanation of the examination results, any x-rays taken, the proposed diagnosis, and outline of the treatment plan. A schedule for future care needs was also explained. The patient verbalized an understanding of the instructions at this time and agreed to be an active participant in their treatment. If the patient should think of any questions or concerns after the visit, I have encouraged the patient to call the office.?Bio[employer]ech.:?I discussed the Pts foot biomechanics with them and how it relates to their problem. Examine new and old orthotics with the pt recomm. Slow breaking in period with the new orthotics. Possible pysical therapy if gait becomes unsteady again.? * Follow Up:?prn * Images: * Sign off status: Completed true * Provider:?Diana Rivera DPM Date:?2023 Generated for Matt otoole/Karin/eTransmitting on:?12/19/2024 06:20 PM EST History and Physical Notes * HPI (History of Present Illness) Category Sub-Category Detail Notes Category Not es At Risk footcare Pt States Last PCP Visit: Date: 4 Foot Pain Nature: numbness,drop foot Location: LEFT Duration: several years Onset: denies trauma Treatments: custom orthotics whi ch pt presented with today , AFO fixed brace Misc: pt relates a more st able gait Examination Category Sub-Category Detail Notes Category Not [...] MTH (s), 5, Right , , Orthopedic GAIT ABNORMALITY: stable/steady with AFO no hx of recent falls FOOTWEAR: , good condition, ex hibit proper fit and accommodation for pedal deformities. OT were inspected and noted to be in good condition giving proper support at the present time DIGITAL DEFORMITIES: Digital contracture , PIPJ, 2-5 B/L, incompl-reducable to push-up test, no over, nor underlapping MUSCLE STRENGTH: Generalized decrease in strength, B/L , Dropfoot, Left- General Examination GENERAL APPEARANCE: Reveals a pleasant, alert, well nourished, well developed, well hydrated individual, who demonstrates proper attention to hygene/body habitus, and is in no acute distress FOOT EXAM: Lower Extremity Neurological Exa m performed:: Yes Visual exam of foot performed:: Yes Date: 06/21/2024 Sensory testing performed:: sensations d iminished Sensory and motor testing performed:: se nsations diminished Pedal pulse taking performed:: 2+ ORIENTED: person, place, and t pernell Ophthalmology Referral DIABETES EYE EXAM Procedure Perform ed:: Yes ?Date of Exam Performed: 03/01/2024 Diabetic Retinopathy Screening:: Yes 03/24 Findings of Diabetic Eye Exam:: no retin opathy Vascular DP PULSES (B): 2/4, B/L PT PULSES (B): 12/27, B/L Nails NAILS are: elongated, overg rown, dystrophic, greater than 3mm thick, discolored and friable with crumbly malodorous subungual debris, with dull to no pain on palpation due to neuropathy T2, T3, T9, T7, T6, T1
== END 2024-12-19 18:36 ==
PROVIDERS: PCP Family Medicine; Visit Provider Internal Medicine Gastroenterology
DX: K21.9 Gastro-esophageal reflux disease without esophagitis (principal)
CPT/HCPCS: 99213

== ENCOUNTER → 2024-12-19 13:36 | Outpatient (BNVA) | payer BC, MEDICAID, SELFPAY | PROVIDERS: PCP Family Medicine; Visit Provider Internal Medicine Gastroenterology ==